=== PATIENT | female | born 1960 | race Caucasian/White ===

== ENCOUNTER 2020-10-16 14:02 | Outpatient (REF) | payer MEDICAID, SELFPAY ==
--- NOTE | ~2020-10-16 | XR_ITS ---
EXAMINATION: XR SINUSES CLINICAL INFORMATION: Acute frontal sinusitis for 4 weeks. COMPARISON: CT head dated 11/03/2006. TECHNIQUE: 5 views of the sinuses were obtained. FINDINGS: There appears to be asymmetric opacification of the right maxillary sinus, which could indicate underlying sinusitis. Otherwise, the visualized paranasal sinuses and mastoid air cells appear clear without air-fluid levels. No lytic or blastic osseous lesion. No abnormal soft tissue calcification. No displaced fracture. XR/XR sinus min 3V IMPRESSION: Possible opacification of the right maxillary sinus, which could indicate underlying sinusitis.
== END 2020-10-16 14:03 | disposition home or self-care (01) ==
LOC: HO.XRAY 14:02
PROVIDERS: PCP Internal Medicine; Visit Provider Nurse Practitioner Family
DX: J01.10 Acute frontal sinusitis, unspecified (principal)
CPT/HCPCS: 70220

== ENCOUNTER → 2021-01-01 09:22 | Outpatient (BNVA) | payer MEDICAID, SELFPAY | PROVIDERS: PCP Internal Medicine; Visit Provider Surgery | DX: D17.1 Benign lipomatous neoplasm of skin and subcutaneous tissue of trunk (principal); D22.9 Melanocytic nevi, unspecified | CPT/HCPCS: 99202 ==

== ENCOUNTER 2021-01-19 07:37 | Outpatient (REF) | payer MEDICAID, SELFPAY ==
[2021-01-19 07:49] VITALS: BP 141/94; PULSE 82; RESP 16; TEMP 36.6; O2SAT 98
[2021-01-19 07:50] VITALS: BMI 24.7
--- NOTE | 2021-01-19 10:02 | W.PM.OPN ---
Operative Note Operative Note Date of Service: 01/19/21 Narrative: Preoperative diagnosis: Lipoma, dermal nevus of back Postoperative diagnosis: Same Procedure: Excision with the dermal nevus, excision of lipoma right back Surgeon: Yunior Galvez MD Director Of Diagnostic Imaging: No physician Anesthesia: Local Indications for procedure: 60-year-old female patient presenting with a soft tissue mass of the right mid back overlying this lesion is a dermal nevus. Patient presents for excision of both lesions Operative findings: Dermal nevus with irregular margin directly below a palpable lipoma measuring approximately 5 cm in diameter Specimen: Dermal nevus, right back, lipoma, right back Estimated blood loss: 5 mL Complications: None Procedure details: 60-year-old female patient presenting with a soft tissue mass with an overlying dermal nevus in the right back. Patient was placed in a prone position and the site of surgery confirmed by the patient. After assuring informed consent the skin was prepped with Betadine and draped in a sterile fashion. Local anesthesia was infiltrated in elliptical fashion using lidocaine 1% with epinephrine. An elliptical incision was then made to include the skin lesion. The skin lesion was excised and sent to pathology separately. The underlying lipoma was then dissected free from the surrounding subcutaneous tissue using Metzenbaum scissors. Specimen was passed off the table and sent to pathology. After assuring adequate hemostasis the dermis was reapproximated using interrupted 3-0 Polysorb sutures. Skin was then closed using interrupted 4-0 nylon sutures. Sterile dressings including 2 x 2 gauze and Tegaderm were then applied. The patient tolerated the procedure well. She was discharged to home in stable condition.
== END 2021-01-19 07:38 | disposition home or self-care (01) ==
LOC: HO.MS 07:37
PROVIDERS: PCP Internal Medicine; Visit Provider Surgery
PROC: (CPT 11400; principal; 2021-01-19 08:00)
DX: D22.5 Melanocytic nevi of trunk (principal); D17.1 Benign lipomatous neoplasm of skin and subcutaneous tissue of trunk
CPT/HCPCS: 11400; 21931; 88304; 88305

== ENCOUNTER → 2021-01-28 10:57 | Outpatient (BNVA) | payer MEDICAID, SELFPAY | PROVIDERS: PCP Internal Medicine; Referring Provider Internal Medicine; Visit Provider Surgery | DX: L82.1 Other seborrheic keratosis (principal); D17.1 Benign lipomatous neoplasm of skin and subcutaneous tissue of trunk; E78.00 Pure hypercholesterolemia, unspecified; I10 Essential (primary) hypertension; F17.200 Nicotine dependence, unspecified, uncomplicated; Z48.02 Encounter for removal of sutures | CPT/HCPCS: 99212 ==

== ENCOUNTER → 2021-04-01 13:02 | Outpatient (BNVA) | payer MEDICAID, SELFPAY | PROVIDERS: PCP Internal Medicine; Visit Provider Obstetrics & Gynecology | DX: N81.10 Cystocele, unspecified (principal) | CPT/HCPCS: 99202 ==

== ENCOUNTER 2023-04-07 11:00 | Outpatient (REF) | payer MEDICAID, SELFPAY ==
[2023-04-07 12:17] LABS: Alanine Aminotransferase 15 U/L (0-31); Albumin Level 4.2 g/dL (3.5-5.0); Alkaline Phosphatase 74 U/L (39-117); Aspartate Amino Transferase 25 U/L (5-31); Bilirubin Direct 0.2 mg/dL (0.0-0.5); Bilirubin Total 0.5 mg/dL (0.0-1.0); Total Protein 6.6 g/dL (6.5-8.0)
[2023-04-07 12:29] LABS: HIV AB/AG Nonreactive (Nonreactive); HIV Num 1 0.07 S/CO (0.00-0.99); ~HepC Num1 13.46 S/CO (0.00-0.79); ~Hepatitis C Antibody Reactive (Nonreactive)
[2023-04-13 19:55] LABS: HCV Log PCR <1.18 NOT DETECTED Log IU/mL (NOT DETECTED); HepC Viral Load <15 NOT DETECTED IU/mL (NOT DETECTED)
== END 2023-04-07 11:01 | disposition home or self-care (01) ==
LOC: HO.HHCL 11:00
PROVIDERS: Visit Provider Emergency Medicine
DX: F11.20 Opioid dependence, uncomplicated (principal)
CPT/HCPCS: 36415; 80076; 86803; 87389; 87522

== ENCOUNTER 2023-06-23 16:08 | Outpatient (REF) | payer MEDICAID, SELFPAY ==
[2023-06-23 17:27] LABS: MANUAL DIFF FLAG NO
[2023-06-23 17:31] LABS: Basophils Percent Auto 0.3 % (0-2); Hematocrit 37.4 % (37.0-47.0); Hemoglobin 12.4 g/dl (12.0-16.0); Lymphocytes Absolute Auto 1.7 X10*3/uL (1.2-4.9); Lymphocytes Percent Auto 42.5 % (20-40); Mean Corpuscular HGB Conc 33.2 g/dl (31.0-35.0); Mean Corpuscular Hemoglobin 31.6 pg (27.0-33.0); Mean Corpuscular Volume 95.4 fL (80.0-98.0); Mean Platelet Volume 10.2 fL (9.4-12.3); Monocytes Absolute Auto 0.3 X10*3/uL (0.1-1.2); Monocytes Percent Auto 7.2 % (2-11); Neutrophils Absolute Auto 1.9 x10*3/uL (2.0-8.3); Platelet Count 184 X10*3/uL (160-400); Red Blood Count 3.92 X10*6/uL (4.20-5.50); Red Cell Distribution Width 12.7 % (11.0-16.0); White Blood Count 3.9 X10*3/uL (4.8-10.8)
[2023-06-23 17:48] LABS: Alanine Aminotransferase 22 U/L (0-31); Albumin Level 4.4 g/dL (3.5-5.0); Alkaline Phosphatase 85 U/L (39-117); Anion Gap 11 (12-20); Aspartate Amino Transferase 28 U/L (5-31); Bilirubin Total 0.3 mg/dL (0.0-1.0); Blood Urea Nitrogen 21 mg/dL (9-16); Calcium 9.5 mg/dL (8.4-10.2); Carbon Dioxide 28 mmol/L (22-29); Chloride 104 mmol/L (96-108); Cholesterol 172 mg/dL (<200); Estimated Glomerular Filt Rate > 60; Glucose Random 87 mg/dL (60-115); HDL Cholesterol 77 mg/dL (>40); LDL Cholesterol Calculated 84 mg/dL (<100); Potassium 4.3 mmol/L (3.3-5.1); Sodium 139 mmol/L (135-145); Triglycerides 57 mg/dL (<150)
[2023-06-23 18:04] LABS: TSH reflex Free T4 1.23 uIU/mL (0.32-4.0)
== END 2023-06-23 16:09 | disposition home or self-care (01) ==
LOC: HO.HHCL 16:08
PROVIDERS: Visit Provider Nurse Practitioner Family
DX: R00.2 Palpitations (principal)
CPT/HCPCS: 36415; 80053; 80061; 84443; 85025

== ENCOUNTER 2024-04-19 09:55 | Outpatient (REF) | payer MEDICAID, SELFPAY ==
[2024-04-19 12:24] LABS: Alanine Aminotransferase 25 U/L (0-31); Alkaline Phosphatase 76 U/L (39-117); Amylase 76 U/L (28-100); Anion Gap 6 (12-20); Aspartate Amino Transferase 34 U/L (5-31); Bilirubin Direct 0.1 mg/dL (0.0-0.5); Bilirubin Total 0.3 mg/dL (0.0-1.0); Blood Urea Nitrogen 14 mg/dL (9-16); Calcium 8.9 mg/dL (8.4-10.2); Carbon Dioxide 29 mmol/L (22-29); Chloride 110 mmol/L (96-108); Cholesterol 146 mg/dL (<200); Estimated Glomerular Filt Rate > 60; Glucose Random 95 mg/dL (60-115); HDL Cholesterol 62 mg/dL (>40); LDL Cholesterol Calculated 61 mg/dL (<100); Lipase 17 U/L (8-78); Potassium 4.2 mmol/L (3.3-5.1); Sodium 141 mmol/L (135-145); Total Protein 6.5 g/dL (6.5-8.0); Triglycerides 115 mg/dL (<150)
[2024-04-19 12:35] LABS: HIV AB/AG Nonreactive (Nonreactive); HIV Num 1 0.04 S/CO (0.00-0.99); ~HepC Num1 12.49 S/CO (0.00-0.79); ~Hepatitis C Antibody Reactive (Nonreactive)
[2024-04-23 14:17] LABS: HCV Log PCR <1.18 NOT DETECTED Log IU/mL (NOT DETECTED); HepC Viral Load <15 NOT DETECTED IU/mL (NOT DETECTED)
== END 2024-04-19 09:56 | disposition home or self-care (01) ==
LOC: HO.HHCL 09:55
PROVIDERS: Emergency Medicine; Internal Medicine; Visit Provider Nurse Practitioner Family
DX: R10.84 Generalized abdominal pain (principal); F11.20 Opioid dependence, uncomplicated; E78.5 Hyperlipidemia, unspecified
CPT/HCPCS: 36415; 80053; 80061; 82150; 82248; 83690; 86803; 87389; 87522

== ENCOUNTER 2024-06-04 14:47 | Outpatient (REF) | payer MEDICAID, SELFPAY ==
[2024-06-04 16:06] LABS: MANUAL DIFF FLAG NO
[2024-06-04 16:17] LABS: Basophils Percent Auto 0.3 % (0-2); Eosinophils Percent Auto 1.3 % (0-4); Hematocrit 38.7 % (37.0-47.0); Hemoglobin 12.7 g/dl (12.0-16.0); Lymphocytes Absolute Auto 1.4 X10*3/uL (1.2-4.9); Lymphocytes Percent Auto 44.6 % (20-40); Mean Corpuscular HGB Conc 32.8 g/dl (31.0-35.0); Mean Corpuscular Hemoglobin 30.8 pg (27.0-33.0); Mean Corpuscular Volume 93.9 fL (80.0-98.0); Mean Platelet Volume 10.5 fL (9.4-12.3); Monocytes Absolute Auto 0.3 X10*3/uL (0.1-1.2); Monocytes Percent Auto 10.1 % (2-11); Neutrophils Absolute Auto 1.4 x10*3/uL (2.0-8.3); Neutrophils Percent Auto 43.7 % (45-73); Platelet Count 172 X10*3/uL (160-400); Red Blood Count 4.12 X10*6/uL (4.20-5.50); Red Cell Distribution Width 12.7 % (11.0-16.0); White Blood Count 3.2 X10*3/uL (4.8-10.8)
--- OUTSIDE RECORDS SUMMARY | 2024-06-04 18:32 | XMS_ITS | Encounter Summary ---
Author Organization [employer] Address [address] [place] [address] [address] [place] [address] Care Team Providers Care Laborer High Density Press Name Role Phone Fernanda Goldie SENIOR APPLICATIONS ENGINEER Primary Care Provider [phone] Flavio Jackson RELAY TELEGRAPHER Unavailable Unavailable Marina Abraham SENIOR APPLICATIONS ENGINEER Primary Care Provider [phone] Reason for Visit * Reason Comments Med Refill Encounter Details Date Type Department Care Team (Late st Contact Info) Description 02/16/2023 Refill [facility] [address] [place] [id number] Clifford, Renata, [facility] [address] [place] [address] Hyperlipidemia, unspecified hyperlipidemia type Social History Tobacco Use Types Packs/Day Years Used Date Smoking Tobacco: Never Assessed Depression Answer Date Recorded Patient Health Questionnaire-9 Score 2 02/02/2023 Patient Health Questionnaire-9 Score 2 02/02/2023 Last PHQ-9: Questionnaire Data Not on file 1 Depression Answer Date Recorded Patient Health Questionnaire-2 Score 0 02/02/2023 Comments Unknown Sex and Gender Information Value Date Recorded Sex Assigned at Female 02/07/2022 10:14 AM EDT Legal Sex Female 10:14 AM EDT Gender Identity Female 02/07/2022 10:14 AM EDT Sexual Orientation Straight 02/07/2022 10 :14 AM EDT documented as of this encounter Plan of Treatment Upcoming Encounters Date Type Department Care Team (Late st Contact Info) Description 06/28/2024 10:30 AM EDT Office Visit [facility] [address] [place] [id number] Fernando Nieto MD [address] [place] [address] documented as of this encounter Visit Diagnoses Diagnosis Hyperlipidemia, unspecified hyperlipidemia type documented in this encounter Additional Health Concerns Assessment Noted Time PHQ-9 Depression Total Score: 2 02/03/20 23 1:49 PM EDT documented as of this encounter Care Teams Laborer High Density Press Relationship Specialty Start Date End Date Goldie Michael NP [address] [place] [address] PCP - General Family Medicine 02/15/23 05/10/23 Marina Abraham NP [address] [place] [address] PCP - General Family Medicine 05/11/23 Flavio Jackson FNP [address] [place] [id number] Nurse Practitioner Family Medicine 03/14/23 documented as of this encounter
--- OUTSIDE RECORDS SUMMARY | 2024-06-04 18:33 | XMS_ITS | Encounter Summary ---
Author Organization [employer] Address [address] [place] [address] [address] [place] [address] Care Team Providers Care Clinic Business Manager Name Role Phone Flavio Jackson LALA Unavailable Unavailable Marina Abraham NP Primary Care Provider [phone] Reason for Visit * Reason Comments Med Refill Encounter Details Date Type Department Care Team ([facility] st Contact Info) Description 05/11/2023 Refill [facility] [address] [place], [place] [phone] Name, MD Emiliano [address] [place] [address] Hyperlipidemia, unspecified hyperlipidemia type Social History Tobacco Use Types Packs/Day Years Used Date Smoking Tobacco: Never Assessed Depression Answer Date Recorded Patient Health Questionnaire-9 Score 4 04/06/2023 Patient Health Questionnaire-9 Score 4 04/06/2023 Last PHQ-9: Questionnaire Data Not on file 1 06/07/2022 Depression Answer Date Recorded Patient Health Questionnaire-2 Score 0 04/06/2023 Comments Unknown Sex and Gender Information Value Date Recorded Sex Assigned at Female 02/07/2022 10:14 AM EDT Legal Sex Female 10:14 AM EDT Gender Identity Female 02/07/2022 10:14 AM EDT Sexual Orientation Straight 02/07/2022 10 :14 AM EDT documented as of this encounter Miscellaneous Notes * Telephone Encounter - Goldie Michael NP - 05/11/2023 2:28 PM EST Approving, but needs appt for additional refills. documented in this encounter Plan of Treatment Upcoming Encounters Date Type Department Care Team (Late st Contact Info) Description 06/28/2024 10:30 AM EDT Office Visit [facility] [address] [place] [address] Fernando Nieto MD [address] [place] [address] documented as of this encounter Visit Diagnoses Diagnosis Hyperlipidemia, unspecified hyperlipidemia type documented in this encounter Additional Health Concerns Assessment Noted Time PHQ-9 Depression Total Score: 4 04/06/20 10:05 AM EST documented as of this encounter Care Teams Clinic Business Manager Relationship Specialty Start Date End Date Marina Abraham NP [address] [place] [address] PCP - General Family Medicine 05/11/23 Flavio Jackson FNP Nurse Practitioner Family Medicine 03/14/23 documented as of this encounter
--- OUTSIDE RECORDS SUMMARY | 2024-06-04 18:33 | XMS_ITS | Encounter Summary ---
Author Organization [employer] Address [address] [place] [address] [address] [place] [address] Care Team Providers Care Billet Recorder Name Role Phone Flavio Jackson LALA Unavailable Unavailable Marina Abraham NP Primary Care Provider [phone] Reason for Visit * Reason Onset Date Comments Chart Prep 05/23/2024 Encounter Details Date Type Department Care Team ([facility] st Contact Info) Description 05/23/2024 Telephone [facility] [address] [place], [place] [phone] Crystal Zamudio MA Chart Prep Social History Tobacco Use Types Packs/Day Years Used Date Smoking Tobacco: Every Day Cigarettes Alcohol Use Standard Drinks/Week Comments Yes 0 (1 standard drink = 0.6 oz pur e alcohol) rare drinking Depression Answer Date Recorded Patient Health Questionnaire-9 Score 0 04/19/2024 Patient Health Questionnaire-9 Score 0 04/19/2024 Last PHQ-9: Questionnaire Data Not on file 0 04/19/2024 Housing Stability Answer Date Recorded What is your housing situation today? I have feliciano skinner 06/23/[address] you li ve. Do you have problems with any of the following? None of the above 06/23/2023 Food Insecurity Answer Date Recorded Within the past 12 months, y ou worried that your food would run out before you got money to buy more: Never True 06/23/2023 Within the past 12 months,th e food you bought just didn't last and you didn't have enough money to get more: Never True Transportation Answer Date Recorded In the past 12 months, has l ack of transportation kept you from medical appts, meetings, work or from getting things needed for daily living? No 06/23/2023 Utilities Answer Date Recorded In the past 12 months, has t he electric, gas, oil or water company threatened to shut off services in your home? No 06/23/2023 Depression Answer Date Recorded Patient Health Questionnaire-2 Score 0 04/19/2024 Comments Unknown Sex and Gender Information Value Date Recorded Sex Assigned at Female 02/07/2022 10:14 AM EDT Legal Sex Female 10:14 AM EDT Gender Identity Female 02/07/2022 10:14 AM EDT Sexual Orientation Straight 02/07/2022 10 :14 AM EDT documented as of this encounter Miscellaneous Notes * Telephone Encounter - Crystal Zamudio MA - 05/23/2024 1:55 PM EST Chart Prep Labs: done Images: not done Vaccines due: Covid, Tdap, Hep B, PCV20, Flu, Shingles Referrals: Cardiology pending appointment Screenings: mammogram , Derm skin melanoma skin check, Cervical cancer Overdue care gaps: SDOH documented in this encounter Plan of Treatment Upcoming Encounters Date Type Department Care Team (Late st Contact Info) Description 06/28/2024 10:30 AM EDT Office Visit [facility] [address] [place] [address] Fernando Nieto MD [address] [place] [address] documented as of this encounter Visit Diagnoses Not on filedocumented in this encounter Additional Health Concerns Assessment Noted Time PHQ-9 Depression Total Score: 0 04/19/19 25 11:45 AM EST documented as of this encounter Care Teams Billet Recorder Relationship Specialty Start Date End Date Marina Abraham NP [address] [place] [address] PCP - General Family Medicine 05/11/23 Flavio Jackson FNP Nurse Practitioner Family Medicine 03/14/23 documented as of this encounter
--- OUTSIDE RECORDS SUMMARY | 2024-06-04 18:33 | XMS_ITS | Encounter Summary ---
Author Organization [employer] Address [address] [place] [address] [address] [place] [address] Care Team Providers Care Driller'S Assistant Name Role Phone Flavio Jackson LALA Unavailable Unavailable Marina Abraham NP Primary Care Provider [phone] Reason for Visit * Reason Onset Date Comments Med Refill 05/09/2024 Encounter Details Date Type Department Care Team (Late st Contact Info) Description 05/09/2024 Refill [facility] [address] [place], [place] [phone] [place] RN Uncomplicated opioid dependence (CMS/HCC) Social History Tobacco Use Types Packs/Day Years [...] Description 06/28/2024 10:30 AM EDT Office Visit [facility] [address] [place] [address] Fernando Nieto MD [address] [place] [address] documented as of this encounter Visit Diagnoses Diagnosis Uncomplicated opioid dependence (CMS/HCC) documented in this encounter Additional Health Concerns Assessment Noted Time PHQ-9 Depression Total Score: 0 04/19/19 25 11:45 AM EST documented as of this encounter Care Teams Driller'S Assistant Relationship Specialty Start Date End Date Marina Abraham NP [address] [place] [address] PCP - General Family Medicine 05/11/23 Flavio Jackson FNP Nurse Practitioner Family Medicine 03/14/23 documented as of this encounter
--- OUTSIDE RECORDS SUMMARY | 2024-06-04 18:33 | XMS_ITS | Encounter Summary ---
Author Organization [employer] Address [address] [place] [address] [address] [place] [address] Care Team Providers Care Supervisor Photocomposition Name Role Phone Flavio Jackson VESSEL CREW MEMBER Unavailable Unavailable Marina Abraham NP Primary Care Provider [phone] Reason for Visit * Reason Onset Date Comments No Show 06/03/2024 Encounter Details Date Type Department Care Team ([facility] st Contact Info) Description 06/03/2024 Telephone [facility] [address] [place], [place] [phone] Marina Abraham, SUDHEER [address] [place], [place] [phone] No Show Social History Tobacco Use Types Packs/Day Years [...] encounter Miscellaneous Notes * Telephone Encounter - Ana Jose - 06/03/2024 11:00 AM EST Patient no show to FOLLOW UP appointment on 06/03/24. documented in this encounter Plan of Treatment Upcoming Encounters Date Type Department Care Team (Late st Contact Info) Description 06/28/2024 10:30 AM EDT Office Visit [facility] [address] [place] [address] Fernando Nieto MD [address] [place] [address] documented as of this encounter Visit Diagnoses Not on filedocumented in this encounter Additional Health Concerns Assessment Noted Time PHQ-9 Depression Total Score: 0 04/19/19 11:45 AM EST documented as of this encounter Care Teams Supervisor Photocomposition Relationship Specialty Start Date End Date Marina Abraham NP [address] [place] [address] PCP - General Family Medicine 05/11/23 Flavio Jackson FNP Nurse Practitioner Family Medicine 03/14/23 documented as of this encounter
--- OUTSIDE RECORDS SUMMARY | 2024-06-04 18:33 | XMS_ITS | Encounter Summary ---
Author Organization [employer] Address [address] [facility] [address] [place] [address] Care Team Providers Care Leather Sponger Name Role Phone CiarachuckFlavio SPECIALTY THERAPIST Unavailable Unavailable Marina Abraham NP Primary Care Provider [phone] Encounter Details Date Type Department Care Team (Latest Contact Info) Description 06/04/2024 Travel Social History Tobacco Use Types Packs/Day Years [...] Description 06/28/2024 10:30 AM EDT Office Visit [facility] [address] [place] [address] Fernando Nieto MD [address] [place] [address] documented as of this encounter Goals Goal Patient Goal Type Associated Problems Recent Progress Patient-Stated? Author Keep your medical appointments Lifestyle No Mitchell Mendiola RN documented as of this encounter Visit Diagnoses Not on filedocumented in this encounter Additional Health Concerns Assessment Noted Time PHQ-9 Depression Total Score: 0 04/19/19 25 11:45 AM EST documented as of this encounter Care Teams Leather Sponger Relationship Specialty Start Date End Date Marina Abraham NP [address] [place] [address] PCP - General Family Medicine 05/11/23 Flavio Jackson FNP Nurse Practitioner Family Medicine 03/14/23 documented as of this encounter
--- OUTSIDE RECORDS SUMMARY | 2024-06-04 18:33 | XMS_ITS | Encounter Summary ---
Author Organization [employer] Address [address] [place] [address] [address] [place] [address] Care Team Providers Care Trust Advisor Name Role Phone Flavio Jackson LALA Unavailable Unavailable Marina Abraham NP Primary Care Provider [phone] Reason for Visit * Reason Onset Date Comments Med Refill 05/28/2024 Encounter Details Date Type Department Care Team (Late st Contact Info) Description 05/28/2024 Refill [facility] [address] [place], [place] [phone] Kait Fatima, RN Uncomplicated opioid dependence (CMS/HCC) Social History [...] 06/28/2024 10:30 AM EDT Office Visit [facility] [address] [place] [address] Fernando Nieto MD [address] [place] [address] documented as of this encounter Visit Diagnoses Diagnosis Uncomplicated opioid dependence (CMS/HCC) documented in this encounter Additional Health Concerns Assessment Noted Time PHQ-9 Depression Total Score: 0 04/19/19 25 11:45 AM EST documented as of this encounter Care Teams Trust Advisor Relationship Specialty Start Date End Date Marina Abraham NP [address] [place] [address] PCP - General Family Medicine 05/11/23 Flavio Jackson FNP Nurse Practitioner Family Medicine 03/14/23 documented as of this encounter
--- OUTSIDE RECORDS SUMMARY | 2024-06-04 18:33 | XMS_ITS | Encounter Summary ---
Author Organization [employer] Address [address] [place] [address] [address] [place] [address] Care Team Providers Care Glove Maker Name Role Phone Flavio Jackson FENCE ERECTOR Unavailable Unavailable Marina Abraham NP Primary Care Provider [phone] Reason for Visit * Reason Comments OBAT Encounter Details Date Type Department Care Team (Latest Contact Info) Description 06/04/2024 1:45 PM EST Clinical Support [facility] [address] [place], [place] [phone] Mitchell Mendiola, RN [address] [place] [address] Uncomplicated opioid dependence (CMS/HCC) (Primary Dx) Social History Tobacco Use Types Packs/Day Years [...] AM EDT documented as of this encounter Progress Notes * Mitchell Mendiola RN - 06/04/2024 1:45 PM EST Shauna here today for Opioid Dependence RV. Patient on current Suboxone dose of 16/4 mg on a 4 week schedule. Induction date 12/28/18. LFTs completed 04/19/24. Patient not currently enrolled in behavioral health services. CARINA MCKEON reviewed by provider. Smoking status 02/2024: 1-2 cigs/day Last PCP appt 07/21/23. Missed PCP appt 06/03/24. Last visit 04/04/24 Utox bup, bzo, tca Shauna seen today for follow-up for opioid use disorder. Seen a day early due to transportation issues tomorrow. Due for annual labs, which are ordered. Reports using 1/2 a bzo 3 days ago due to acuteanxiety/panic. Reports she has tried prescribed anti-anxiety/anti-depressant meds in the past but they did not work for her. Offered a referral to new psych prescriber Toño Servin and pt stated she would think about it. Declined to speak with a therapist today. TODAY 06/04/24 +bup, bzo, tca Shauna is here after missing appt a few days ago. Also missed PCP appt yesterday. She is having trouble keeping appts, plans to go and reschedule PCP appt now. No concerns with Suboxone. Still struggling with intermittent anxiety, but declines services. Plan: Suboxone dosing schedule of 16/4 mg daily and management of side effects reviewed. Recovery support, harm reduction (including Narcan), and behavioral health attendance reviewed. Appointment for 4 weeks given. Patient expressed understanding and agreement with continuing plan of care. This information has been disclosed to you from records protected by federal confidentiality rules (42 CFR Part 2). The federal rules prohibit you from making any further disclosure of information inthis record that identifies a patient as having or having had a substance use disorder either directly, by reference to publicly available information, or through verification of such identification by another person unless further disclosure is expressly permitted by the written consent of the individual whose information is being disclosed or as otherwise permitted by (see2.3.1). The federal rules restrict any use of the information to investigate or prosecute with regard to a crime any patient with a substance use disorder, except as provided at 2.12??(5) and 2.65. documented in this encounter Plan of Treatment Upcoming Encounters Date Type Department Care Team (Late st Contact Info) Description 06/28/2024 10:30 AM EDT Office Visit [facility] [address] [place], [place] [phone] Fernando Nieto MD [address] [place] [address] documented as of this encounter Goals Goal Patient Goal Type Associated Problems Recent Progress Patient-Stated? Author Keep your medical appointments Lifestyle No Mitchell Mendiola RN documented as of this encounter Procedures Procedure Name Priority Date/Time Associated Diagnosis Comments POCT AGAPITO-14 URINE DRUG SCREEN Routine 06/04/2024 1:50 PM EST Uncomplicated opioid dependence ([facility]) documented in this encounter Results * POCT AGAPITO-14 Urine Drug Screen (06/04/2024 1:50 PM EST) THC Negative Cocaine Screen, Urine Negative Opiate Screen, Urine Negative Methamphetamine Screen Urine Negative Amphetamine Screen, Urine Negative Benzodiazepines Screen, Urine Positive Barbiturate Screen, Urine Negative Methadone Screen, Urine Negative Buprenophine Screen, Urine Positive TCA, Urine Positive MDMA Urine Negative ng/mL Oxycodone Screen, Urine Negative Phencyclidine (PCP), Urine Negative Propoxyphene, Urine Negative Fentanyl, Urine Negative Urine Urine specimen obtained by clean catch procedure / Unknown 06/04/2024 1:50 PM EST Cesar Manning MD POINT OF CARE TEST ENTER/EDIT OR DERABLES Final Result documented in this encounter Visit Diagnoses Diagnosis Uncomplicated opioid dependence (CMS/HCC)- Primary documented in this encounter Additional Health Concerns Assessment Noted Time PHQ-9 Depression Total Score: 0 04/19/19 25 11:45 AM EST documented as of this encounter Care Teams Glove Maker Relationship Specialty Start Date End Date Marina Abraham NP [address] [place] [address] PCP - General Family Medicine 05/11/23 Flavio Jackson FNP Nurse Practitioner Family Medicine 03/14/23 documented as of this encounter
--- OUTSIDE RECORDS SUMMARY | 2024-06-04 18:33 | XMS_ITS | Clinical Summary ---
Author Organization [employer] Address [address] [place] [address] [address] [place] [address] Care Team Providers Care Inspector Watch Train Name Role Phone ManuelJaydenFlavio BREAD ICER Unavailable Unavailable Marina Abraham NP Primary Care Provider [phone] Allergies No known active allergies Medications * This document contains information received from the source organization and may not represent a complete record from that organization. ibuprofen 800 MG tablet Take 1 tablet by mouth every 8 (eight) hours. Active lidocaine (Lidoderm) 5 % patch Place 1 patch on the skin 1 (one) time each day. May wear up to 12 hours. Active Blood Pressure kit Use as directed Active dicyclomine (Bentyl) 20 MG tabletIndications :Generalized abdominal pain Take 1 tablet (20 mg) by mouth before breakfast, before lunch, before evening meal, and at bedtime. 30 tablet 024 2024 Active Multiple Vitamin (Multi-Vitamin) tablet Take 1 tablet by mouth Once per day. Active atorvastatin (Lipitor) 10 MG tabletIndications :Hyperlipidemia, unspecified hyperlipidemia type TAKE 1 TABLET BY MOUTH EVERY DAY 90 tablet 025 Active cyclobenzaprine (Flexeril) 10 MG tabletIndications :Muscle spasm Take 1 tablet (10 mg) by mouth if needed in the morning and at bedtime for muscle spasms for up to 10 days. 20 tablet 025 Active fluticasone (Flonase) 50 MCG/ACT nasal spray Administer 2 sprays into each nostril Once per day. Shake gently. Before first use, prime pump. After use, clean tip and replace cap. 11.1 mL 3 025 Active metoprolol tartrate (Lopressor) 25 MG tablet Take 0.5 tablets (12.5 mg) by mouth 2 times daily. 30 tablet 025 Active Buprenorphine HCl-Naloxone HCl (Suboxone) 8-2 MG SL filmIndications:U ncomplicated opioid dependence (CMS/HCC) Place 1 Film under the tongue every 12 (twelve) hours for 28 days. Allow to dissolve slowly in the mouth without chewing or swallowing. Do not start before May 31, 2024. 56 Film 025 2024 Active Buprenorphine HCl-Naloxone HCl (Suboxone) 8-2 MG SL filmIndications:U ncomplicated opioid dependence (CMS/HCC) Place 1 Film under the tongue every 12 (twelve) hours. Allow to dissolve slowly in the mouth without chewing or swallowing. 56 Film 024 2024 Discontinued(R eorder (will not trigger notification to Pharmacy)) Buprenorphine HCl-Naloxone HCl (Suboxone) 8-2 MG SL filmIndications:U ncomplicated opioid dependence (CMS/HCC) Place 1 Film under the tongue every 12 (twelve) hours for 22 days. Allow to dissolve slowly in the mouth without chewing or swallowing. 44 Film 025 2024 Discontinued(R eorder (will not trigger notification to Pharmacy)) Active Problems Problem Noted Date Diagnosed Date Generalized abdominal pain 09/28/2023 Assessment & Plan (09/28/2023 11:51 AM EDT): I advise patient to avoid NSAIDs, spicy and acid food, I advise to eat at the same time every day Patient will be contacted with result of tests Palpitations 07/21/2023 Assessment & Plan (07/24/2023 11:11 AM EDT): Requesting referral to cardiology, referred, Monitor, aware of s/s to report Reviewed possible option of betablocker for anxiety and occasional palpitations Recent cbc and tsh wnl Chronic midline thoracic back pain 07/21/2023 Assessment & Plan (07/24/2023 11:13 AM EDT): X-ray ordered, Onychomycosis 07/21/2023 Assessment & Plan (07/24/2023 11:11 AM EDT): Reviewed options for treatment, rx sent Tobacco dependence due to cigarettes, in remissi on 06/23/2023 Assessment & Plan (06/23/2023 7:47 PM EDT): Has not had a cigarette today, does not have 30 pack years, Chronic sinusitis 06/23/2023 Hyperlipidemia 06/23/2023 Assessment & Plan (06/23/2023 7:47 PM EDT): Stable, repeat labs, Given sig fh of CAD reviewed risk/benefit of daily aspirin Encounter for screening for malignant neoplasm o f colon 06/23/2023 Assessment & Plan (06/23/2023 7:50 PM EDT): Willing to complete ifobt Subacute maxillary sinusitis 06/23/2023 Assessment & Plan (06/23/2023 7:50 PM EDT): Pt with hx of chronic sinusitis requiring surgery, asymptomatic since until 2 weeks ago when chronic nasal congestion with pain and inability to clear sinus returned. - resume flonase - if no improvement may start abx as prescribed, continue until completed Muscle spasm 06/23/2023 Assessment & Plan (06/23/2023 7:50 PM EDT): Reviewed intermittent usage of prn msc relaxer Palpitation 06/23/2023 Assessment & Plan (06/23/2023 7:52 PM EDT): EKG completed in house today, labs as ordered below, rtc in 1 month aware of s/s to report JOSUE (generalized anxiety disorder) 10/24/2022 Assessment & Plan (04/06/2023 10:30 AM EST): With bipolar features. Hx childhood trauma. Differential includes PTSD. Poor sleep, nightmares, panic attacks with dissociation. Hx mild mood-congruent hallucinations. Hx opiate addiction currently on Suboxone. Tobacco abuse disorder. She continues doing very well, and will continue Seroquel 25 mg 1/2 or 1 full tab at bedtime. May also continue Hydroxyzine 10mg 1-2 tabs prn at first sign of panic attack. F/U with [facility] clinician [place] and plans to seek outpatient therapist On 02/02/2023 provider informed pt that I would be retiring within the next year or so. At next appt in 2 months will review plans for continuity of care. She agrees with the plan. Assessment & Plan (02/02/2023 2:52 PM EDT): With bipolar features. Hx childhood trauma. Differential includes PTSD. Poor sleep, nightmares, panic attacks with dissociation. Hx mild mood-congruent hallucinations. Hx opiate addiction currently on Suboxone. Tobacco abuse disorder. She continues doing very well, and will continue Seroquel 25 mg 1/2 or 1 full tab at bedtime. May also continue Hydroxyzine 10mg 1-2 tabs prn at first sign of panic attack. F/U with [facility] clinician Russell. Today 02/02/2023 provider informed pt that I would be retiring within the next year or so, but we would make every effort to ensure smooth transition of care. F/U with me in 2 months. She agrees with the plan. Assessment & Plan (11/22/2022 11:32 AM EDT): With bipolar features. Hx childhood trauma. Differential includes PTSD. Poor sleep, nightmares, panic attacks with dissociation. Hx mild mood-congruent hallucinations. Hx opiate addiction currently on Suboxone. Tobacco abuse disorder. She has had excellent early response to Seroquel 25 mg 1/2 tab at bedtime with better sleep, improved appetite, control of anxiety and mood swings. She can continue like this for now or increase to 1 full tab at bedtime. May also continueHydroxyzine 10mg 1-2 tabs prn at first sign of panic attack. F/U with [facility] clinician Russell. F/U with me in 6 weeks. She agrees with the plan. Assessment & Plan (10/24/2022 11:23 AM EDT): With bipolar features. Hx childhood trauma. Differential includes PTSD. Poor sleep, nightmares, panic attacks with dissociation. Hx mild mood-congruent hallucinations. Hx opiate addiction currently on Suboxone. Tobacco abuse disorder. She will start Seroquel 25 mg 1/2 tab then 1 tab at bedtime. Also Hydroxyzine 10mg 1-2 tabs prn at first sign of panic attack. F/U with [facility] clinician Russell. F/U with me in 3-4 weeks. She agrees with the plan. 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/07/2012 Depressive disorder 08/16/2011 Malignant basal cell neoplasm of skin 06/23/2011 Assessment & Plan (06/23/2023 7:48 PM EDT): In care , recent evaluation by derm Resolved Problems Problem Noted Date Diagnosed Date Resolved Date Chronic use of opiate drug f or therapeutic purpose 06/23/2023 06/23/2023 Encounters Date Type Department Care Team Description 06/04/2024 2:20 PM EST Office Visit [facility] [address] [place] [phone] Name, MD Emiliano Abnormal findings in stool (Primary Dx) 06/04/2024 1:45 PM EST Clinical Support [address] [address] Mitchell Mendiola RN Uncomplicated opioid dependence ([facility]/HCC) (Primary Dx) 06/04/2024 Travel 06/03/[address] [address] Marina Abraham NP No Show 05/28/[address] [address] Kait Fatima, CHRISTIAN Uncomplicated opioid dependence (CMS/HCC) 05/23/[address] [address] Crystal Zamudio MA Chart Prep 05/21/[address] [address] Kait Fatima, CHRISTIAN 05/09/[address] [address] Lexus iHll RN Uncomplicated opioid dependence ([facility]/HCC) 04/19/2024 9:00 AM EST Office Visit [address] [address] Chelo Dyer FNP Palpitation (Primary Dx); Hyperlipidemia, unspecified hyperlipidemia type; Muscle spasm; JOSUE (generalized anxiety disorder) 04/19/2024 Orders Only [facility] [address] [place] [phone] Fernando Nieto MD 04/19/[address] [address] Shanua Baker RN 04/08/2024 Orders Only [facility] [address] [place], [place] [phone] Jam Pereira MD 04/08/[address] [address] Marina Abraham NP ER Follow-up 04/04/2024 11:00 AM EST Clinical Support [address] [address] Kali Silver RN Uncomplicated opioid dependence ([facility]/HCC) (Primary Dx) 04/04/2024 Travel 04/01/2024 Orders Only [facility] [address] [place] [phone] Lexus Hill RN Uncomplicated opioid dependence ([facility]/HCC) 03/27/2024 Refill [facility] [address] [place] [phone] Lexus Hill RN Uncomplicated opioid dependence ([facility]/HCC) 03/05/2024 Refill [facility] [address] [place] [phone] Marina Abraham NP Muscle spasm 03/05/[address] [address] Marina Abraham NP Medication Question from Last 3 Months Immunizations Name Administration Dates Next Due Hep A, Adult 06/13/2003 Hep B, adult 04/14/2009,01/23/2007,12/15/2006 Influenza injectable quadriv alent preservative free 02/01/2021 Influenza, IIV3, injectable 12/28/2006, 3 Moderna Covid-19 Vaccine 12+ 03/26/2021,09/05/19 21,08/07/2020 Pneumococcal Polysaccharide PPSV23 12/15/2006 TD (adult), 2 Lf tetanus tox oid, preservative free, adsorbed 04/14/2009 Social History Tobacco Use Types Packs/Day Years Used Date Smoking Tobacco: Every Day Cigarettes Tobacco Cessation:Ready to Q uit: Not Asked; Counseling Given: Not Answered Alcohol Use Standard Drinks/Week Comments Yes 0 [...] Orientation Straight 02/07/2022 10 :14 AM EDT Last Filed Vital Signs Vital Sign Reading Time Taken Comments Blood Pressure 108/80 06/04/2024 2:29 PM EST Pulse 80 06/04/2024 2:29 PM EST Temperature 36.7 ??C (98 ??F) 06/04/2024 2:29 PM EST Respiratory Rate 16 06/04/2024 2:29 PM EST Oxygen Saturation 98% 06/04/2024 2:29 PM EST Inhaled Oxygen Concentration - - Weight 57.2 kg (126 lb) 06/04/2024 2:29 PM EST Height 157.5 cm (5' 2 ) 04/19/2024 8:56 AM EST Body Mass Index 23.05 04/19/2024 8:56 AM EST Plan of Treatment Upcoming Encounters Date Type Department Care Team (Late st Contact Info) Description 06/28/2024 10:30 AM EDT Office Visit [facility] [address] [place], [place] [phone] Fernando Nieto MD [address] [place], [place] [phone] Health Maintenance Due Date Last Done Comments CT Colonography 1960 Colonoscopy 1960 Colorectal Cancer Screening 1960 FIT DNA/Cologuard 1960 FIT 1960 FOBT 1960 Sigmoidoscopy 1960 Derm Melanoma Skin Check 02/02/1961 Pap Smear 1981 Cervical Cancer Screening 1990 HPV/Cotest 1990 Mammogram 2000 Hepatitis A Vaccines (2 of 2 - Risk 2-dose series) 12/14/2003 06/13/2003 Pneumococcal Vaccine: 50+ Years (2 of 2 - PCV) 12/16/2007 12/15/2006 DTaP/Tdap/Td Vaccines (1 - Tdap) 04/15/2009 04/14/2009 Zoster Vaccines (1 of 2) 2010 COVID-19 Vaccine (4 - season) 2023 03/26/2021, 09/04/2020, 08/07/2020 Influenza Vaccine (#1) 2023 , 12/28/2006, 02/05/2003 SDOH Screening 06/22/2024 06/23/2023 Alcohol/Substance Use Screening 04/19/2025 04/19/2024 Depression Screening 04/19/2025 04/19/2024, 04/19/19 Tobacco Screening 04/19/2025 04/19/2024 Lipid Panel 04/19/2029 04/19/2024, 06/08, 08/18/2021, Additional history exists RSV Patients and Patients Aged 60 years or older (1 - 1-dose 75+ series) 08/04/2035 Hepatitis B Vaccines Completed 04/14/2009, 01/23/2007, 12/15/2006 HIV Screening Completed 04/19/2024, 04/07/2023 Hepatitis C Screening Completed 04/19/2024 , 04/19/2024, 04/07/2023, Additional history exists HIB Vaccines Aged Out No longer eligi ble based on patient's age to complete this topic HPV Vaccines Aged Out No longer eligi ble based on patient's age to complete this topic IPV Vaccines Aged Out No longer eligi ble based on patient's age to complete this topic Meningococcal Vaccine Aged Out No kenya brenna eligible based on patient's age to complete this topic RSV under 20 months Aged Out No longe r eligible based on patient's age to complete this topic Rotavirus Vaccines Aged Out No longer eligible based on patient's age to complete this topic Goals Goal Patient Goal Type Associated Problems Recent Progress Patient-Stated? Author Keep your medical appointments Lifestyle No Mitchell Mendiola, contract paralegal Procedure Name Priority Date/Time Associated Diagnosis Comments CBC WITH AUTO DIFFERENTIAL Routine 06/04/2024 2:29 PM EST Abnormal findings in stool POCT AGAPITO-14 URINE DRUG SCREEN Routine 06/04/2024 1:50 PM EST Uncomplicated opioid dependence (CMS/HCC) HEPATITIS C VIRAL RNA, QUANTITATIVE, REAL-TIME PCR Routine 04/19/2024 9:58 AM EST HIV 1/2 ANTIGEN/ANTIBODY, FOURTH GENERATION W/RFL Routine 04/19/2024 9:58 AM EST HEPATITIS C AB W/REFL TO HCV RNA, QN, PCR Routine 04/19/2024 9:58 AM EST HEPATIC FUNCTION PANEL Routine 04/19/2024 9:58 AM EST LIPID PANEL, STANDARD Routine 04/19/2024 9:58 AM EST Hyperlipidemia, unspecified hyperlipidemia type AMYLASE Routine 04/19/2024 9:58 AM EST Generalized abdominal pain LIPASE Routine 04/19/2024 9:58 AM EST Generalized abdominal pain COMPREHENSIVE METABOLIC PANEL Routine 04/19/2024 9:58 AM EST Generalized abdominal pain TROPONIN T 5TH GENERATION Routine 04/08/2024 3:59 PM EST BASIC METABOLIC PANEL Routine 04/08/2024 3:59 PM EST POCT AGAPITO-14 URINE DRUG SCREEN Routine 04/04/2024 11:21 AM EST Uncomplicated opioid dependence (CMS/HCC) from Last 3 Months Results * (ABNORMAL) CBC auto differential (06/04/2024 2:29 PM EST) White Blood Count 3.2(L) 4.8 - 10.8 X10*3/uL [facility] Red Blood Count 4.12(L) 4.20 - 5.50 X10*6/uL [facility] Hemoglobin 12.7 12.0 - 16.0 g/dl [facility] Hematocrit 38.7 37.0 - 47.0 % [facility] Mean Corpuscular Volume 93.9 80.0 - 98.0 fL [facility] Mean Corpuscular Hemoglobin 30.8 27.0 - 33.0 pg [facility] Mean Corpuscular HGB Conc 32.8 31.0 - 35.0 g/dl [facility] Red Cell Distribution Width 12.7 11.0 - 16.0 % [facility] Platelet Count 172 160 - 400 X10*3/uL [facility] Mean Platelet Volume 10.5 9.4 - 12.3 fL [facility] Neutrophils Percent Auto 43.7(L) 45 - 73 % [facility] Imm Gran Pct Auto 0.0 0.0 - 0.4 % [facility] Lymphocytes Percent Auto 44.6(H) 20 - 40 % [facility] Monocytes Percent Auto 10.1 2 - 11 % [facility] Eosinophils Percent Auto 1.3 0 - 4 % [facility] Basophils Percent Auto 0.3 0 - 2 % [facility] NRBC Pct Auto 0.0 0.0 - 0.2 /100WBC [facility] Neutrophils Absolute Auto 1.4(L) 2.0 - 8.3 x10*3/uL [facility] Imm Gran Abs Auto 0.00 0.00 - 0.03 X10*3/uL [facility] Lymphocytes Absolute Auto 1.4 1.2 - 4.9 X10*3/uL [facility] Monocytes Absolute Auto 0.3 0.1 - 1.2 X10*3/uL [facility] Eosinophils Absolute Auto 0.0 0.0 - 0.4 X10*3/uL [facility] Basophils Absolute Auto 0.0 0.0 - 0.2 X10*3/uL [facility] NRBC Abs Auto 0.000 0.0 - 0.012 X10*3/uL [facility] Blood Venous blood specimen / Unknown 06/04/2024 2:29 PM EST 06/04/2024 4:04 PM EST us Emiliano Name LAB BLOOD ORDERABLES Final Resul t [facility] [address] [place] [phone] * POCT AGAPITO-14 Urine Drug Screen (06/04/2024 1:50 PM EST) Only the most recent of2 resultswithin the time period is included. THC Negative Cocaine Screen, Urine Negative Opiate [...] procedure / Unknown 06/04/2024 1:50 PM EST Result [facility] Cesar Manning MD POINT OF CARE TEST ENTER/EDIT OR DERABLES Final Result * Hepatitis C Viral RNA, Quantitative, Real-Time PCR (04/19/2024 9:58 AM EST) Pathologist [facility] Hepatitis C Viral Load <15 NOT DETECTED NOT DETECTED IU/mL [facility] HCV Log PCR <1.18 NOT DETECTED NOT DETECTED Log IU/mL [facility] Comment:For additional infor javi, please refer tohttp://education.enymotion/faq/NBA17q4(This link is being provided for informational/educational purposes only.)THIS TEST WAS PERFORMED AT:[facility] [place] [phone] PRECIADO MD 04/19/2024 9:58 AM EST 04/22/2024 11:20 AM EST Result [facility] Fernando Nieto MD LAB BLOOD ORDERABLES Final Res ult [facility] [address] [place] [phone] * (ABNORMAL) Hepatitis C Antibody with Reflex to HCV, RNA, Quantitative, Real- Time PCR (04/19/2024 9:58 AM EST) Pathologist [facility] Hepatitis C Antibody Reactive( A) Nonreactive [facility] Comment:Presumptive evidence of antibodies to HCV. 04/19/2024 9:58 AM EST 04/19/2024 11:34 AM EST Result [facility] Fernando Nieto MD LAB BLOOD ORDERABLES Final Res ult Performing Organization Address [facility]/ZIP Co de Phone Number [facility] [address] [place] [phone] * HIV-1/2 Antigen and Antibodies, Fourth Generation, with Reflexes (04/19/2024 9:58 AM EST) HIV AB/AG Nonreactive Nonreactive [facility] Comment:HIV-1 p24 Ag and/or HIV-1/HIV-2 Ab not detected.A test result that is nonreactive does not exclude thepossibility of exposure to or infection with HIV-1 and/orHIV-2. Nonreactive results in this assay for individualswith prior exposure to HIV-1 and/or HIV-2 may be due toantigen and antibody levels that are below the limit ofdetection of this assay.The [employer] HIV Ag/Ab Combo assay result andsupplemental assay results should be interpreted inconjunction with the patient's clinical presentation,history and other laboratory results. If the results areinconsistent with clinical evidence, additional testing issuggested to confirm the result. 04/19/2024 9:58 AM EST 04/19/2024 11:34 AM EST us Fernando Nieto MD LAB BLOOD ORDERABLES Final Res ult Performing Organization Address [facility] Co de Phone Number [facility] [address] [place] [phone] * Lipase (04/19/2024 9:58 AM EST) Lipase 17 8 - 78 U/L [facility] Blood Venous blood specimen / Unknown 04/19/2024 9:58 AM EST 04/19/2024 11:34 AM EST us Nataliya Bates MD LAB BLOOD ORDERABLES Final Result Performing Organization Address City/[facility]/ZIP Co de Phone Number [facility] [address] [place] [phone] * Amylase (04/19/2024 9:58 AM EST) Amylase 76 28 - 100 U/L [facility] Blood Venous blood specimen / Unknown 04/19/2024 9:58 AM EST 04/19/2024 11:34 AM EST us Nataliya Bates MD LAB BLOOD ORDERABLES Final Result [facility] [address] [place] [phone] * Hepatic Function Panel (04/19/2024 9:58 AM EST) Bilirubin, Direct 0.1 0.0 - 0.5 mg/dL [facility] 04/19/2024 9:58 AM EST 04/19/2024 11:34 AM EST us Fernando Nieto MD LAB BLOOD ORDERABLES Final Res ult Performing Organization Address City/[facility]/ZIP Co de Phone Number [facility] [address] [place] [phone] * Lipid Panel, Standard (04/19/2024 9:58 AM EST) Triglycerides 115 <150 mg/dL [facility] Comment:Desirable Triglyceri de: less than 150 mg/dLBorderline High Triglyceride 150-199 mg/dLHigh Triglyceride: 200-499 mg/dLVery High Triglyceride: greater than or equal to 5OO mg/dL Cholesterol 146 <200 mg/dL [facility] Comment:Desirable Cholestero l: less than 200 mg/dLBorderline High Cholesterol: 200-239 mg/dLHigh Cholesterol: greater than 239 mg/dL LDL Cholesterol Calculated 61 <100 mg/dL [facility] Comment:Desirable LDL: less than 100 mg/dLNear Optimal/Above Optimal LDL: 110- 129 mg/dLBorderline High LDL: 130-159 mg/dLHigh LDL: 160-189 mg/dLVery High LDL: greater than or equal to 190 mg/dL HDL Cholesterol 62 >40 mg/dL [facility] Comment:Desirable HDL: grea ter than 40 mg/dL Note: This HDL assay may give artificially low results in patients with liver disease. Blood Venous blood specimen / Unknown 04/19/2024 9:58 AM EST 04/19/2024 11:34 AM EST us Chelo [place] BREAD ICER LAB BLOOD ORDERABLES Final Res ult [facility] [address] [place] [phone] * (ABNORMAL) Comprehensive Metabolic Panel (04/19/2024 9:58 AM EST) Sodium 141 135 - 145 mmol/L [facility] Potassium 4.2 3.3 - 5.1 mmol/L [facility] Chloride 110(H) 96 - 108 mmol/L [facility] Carbon Dioxide 29 22 - 29 mmol/L [facility] Anion Gap 6(L) 12 - 20 [facility] Urea Nitrogen (BUN) 14 9 - 16 mg/dL [facility] Creatinine, Serum 0.83 0.5 - 1.4 mg/dL [facility] Estimated Glomerular Filt Rate >60 [facility] Comment:Chronic Kidney Disea se: Estimated GFR < 60 mL/min/[id number] Kidney Disease: Estimated GFR < 15 mL/min/1.73m2 Glucose 95 60 - 115 mg/dL [facility] Calcium 8.9 8.4 - 10.2 mg/dL [facility] Bilirubin, Total 0.3 0.0 - 1.0 mg/dL [facility] Aspartate Amino Transferase 34(H) 5 - 31 U/L [facility] Alanine Aminotransferase 25 0 - 31 U/L [facility] Total Protein 6.5 6.5 - 8.0 g/dL [facility] Albumin Level 4.0 3.5 - 5.0 g/dL [facility] Alkaline Phosphatase 76 39 - 117 U/L [facility] Blood Venous blood specimen / Unknown 04/19/2024 9:58 AM EST 04/19/2024 11:34 AM EST Nataliya Bates MD LAB BLOOD ORDERABLES Final Result [facility] [address] [place] [phone] * Troponin T 5th Generation (04/08/2024 3:59 PM EST) Blood Venous blood specimen / Unknown Historical Provider LAB BLOOD ORDERABLES Leonora l Result * Basic Metabolic Panel (04/08/2024 3:59 PM EST) Blood Venous blood specimen / Unknown Historical Provider LAB BLOOD ORDERABLES Leonora l Result from Last 3 Months Insurance [facility] [address] Care Teams Inspector Watch Train Relationship Specialty Start Date End Date Marina Abraham NP [address] [place] [phone] PCP - General Family Medicine 05/11/23 Flavio Jackson FNP Nurse Practitioner Family Medicine 03/14/23
--- OUTSIDE RECORDS SUMMARY | 2024-06-04 18:33 | XMS_ITS | Encounter Summary ---
Author Organization [employer] Address [address] [facility] 7t [place] [address] Care Team Providers Care Certified Ophthalmic Medical Technician Name Role Phone CiarachuckFlavio MALTHOUSE LABORER Unavailable Unavailable Marina Abraham NP Primary Care Provider [phone] Encounter Details Date Type Department Care Team (Late st Contact Info) Description 04/01/2024 Orders Only [facility] MEDICINE [address] [place], [place] [phone] [place]us [place] RN Uncomplicated opioid dependence (CMS/HCC) [...] Questionnaire Data Not on file 1 06/07/2022 Housing Stability Answer Date Recorded What is [...] 10:30 AM EDT Office Visit [facility] MEDICINE 230 [place], [place] [phone] Fernando Nieto MD 230 [place], [place] [phone] Scheduled Orders Name Type Priority Associated Diagnoses Orde r Schedule Hepatitis C Antibody with Reflex to HCV, RNA, Quantitative, Real-Time PCR Lab Routine Uncomplicated opioid dependence (CMS/HCC) Expected: 04/01/2024 (Approximate), Expires: 04/01/2025 HIV-1/2 Antigen and Antibodies, Fourth Generation, with Reflexes Lab Routine Uncomplicated opioid dependence (CMS/HCC) Expected: 04/01/2024 (Approximate), Expires: 04/01/2025 Hepatic Function Panel Lab Routine Uncomplicated opioid dependence (CMS/HCC) Expected: 04/01/2024 (Approximate), Expires: 04/01/2025 documented as of this encounter Visit Diagnoses Diagnosis Uncomplicated opioid dependence (CMS/HCC) documented in this encounter Additional Health Concerns Assessment Noted Time PHQ-9 Depression Total Score: 4 04/06/20 23 10:05 AM EST documented as of this encounter Care Teams Certified Ophthalmic Medical Technician Relationship Specialty Start Date End Date Mairna Abraham NP [address] [place] [address] PCP - General Family Medicine 05/11/23 Flavio Jackson FNP Nurse Practitioner Family Medicine 03/14/23 documented as of this encounter
--- OUTSIDE RECORDS SUMMARY | 2024-06-04 18:33 | XMS_ITS | Encounter Summary ---
Author Organization [employer] Address [address] [place] [address] 7[place] [address] Care Team Providers Care Metal Bed Assembler Name Role Phone Renata Loredo COMMISSARY REPRESENTATIVE Primary Care Provider [phone] Goldie Michael REHABILITATION SERVICES COUNSELOR Primary Care Provider [phone] Flavio Jackson COMMISSARY REPRESENTATIVE Unavailable Unavailable Marina Abraham REHABILITATION SERVICES COUNSELOR Primary Care Provider [phone] Reason for Visit * Reason Comments Med Refill Encounter Details Date Type Department Care Team (Late st Contact Info) Description 02/13/2023 Refill [facility] MEDICINE 230 [place], [place] [phone] CeciliaRenata, [facility] 230 [place], [place] [phone] Hyperlipidemia, unspecified hyperlipidemia type Social History Tobacco [...] encounter Miscellaneous Notes * Telephone Encounter - Edda Cross RN - 02/16/2023 9:07 AM EST Meds. Que for approval to new PCP. * Telephone Encounter - Edda Cross RN - 02/16/2023 9:07 AM EST Please schedule for TP apt. With new PCP. * Telephone Encounter - LALA Vazquez - 02/15/2023 5:28 PM EST Patient never under my medical care. Please route to PCP and schedule TP visit with Goldie when available. Thank you! documented in this encounter Plan of Treatment Upcoming Encounters Date Type Department Care Team (Late st Contact Info) Description 06/28/2024 10:30 AM EDT Office Visit [facility] MEDICINE 230 [place] [address] Fernando Nieto MD 230 [place] [address] documented as of this encounter Visit Diagnoses Diagnosis Hyperlipidemia, unspecified hyperlipidemia type documented in this encounter Additional Health Concerns Assessment Noted Time PHQ-9 Depression Total Score: 2 02/03/20 23 1:49 PM EDT documented as of this encounter Care Teams Metal Bed Assembler Relationship Specialty Start Date End Date Renata Loredo FNP [address] [place] [address] PCP - General Family Medicine 06/07/22 02/14/23 Goldie Michael NP [address] [place] [address] PCP - General Family Medicine 02/15/23 05/10/23 Marina Abraham NP [address] [place] [address] PCP - General Family Medicine 05/11/23 Flavio Jackson FNP 230 [place] [address] Nurse Practitioner Family Medicine 03/14/23 documented as of this encounter
--- OUTSIDE RECORDS SUMMARY | 2024-06-04 18:33 | XMS_ITS | Encounter Summary ---
Author Organization [employer] Address [address] [facility] 7t [place] [address] Care Team Providers Care Assurance Associate Name Role Phone ManuelJaydenFlavio PROJECT CONTROLS SPECIALIST Unavailable Unavailable Marina Abraham NP Primary Care Provider [phone] Encounter Details Date Type Department Care Team (Late st Contact Info) Description 04/08/2024 Orders Only [facility] [address] [place], [place] [phone] Provider, MD Jam Social History Tobacco Use Types Packs/Day Years [...] Description 06/28/2024 10:30 AM EDT Office Visit [facility] MEDICINE 230 [place], [place] [phone] Fernando Nieto MD 230 [place], [place] [phone] documented as of this encounter Procedures Procedure Name Priority Date/Time Associated Diagnosis Comments TROPONIN T 5TH GENERATION Routine 04/08/2024 3:59 PM EST BASIC METABOLIC PANEL Routine 04/08/2024 3:59 PM EST documented in this encounter Results * Troponin T 5th Generation (04/08/2024 3:59 PM EST) Blood Venous blood specimen / Unknown [facility] Provider LAB BLOOD ORDERABLES Leonora l Result * Basic Metabolic Panel (04/08/2024 3:59 PM EST) Blood Venous blood specimen / Unknown [facility] Provider LAB BLOOD ORDERABLES Leonora l Result documented in this encounter Visit Diagnoses Not on filedocumented in this encounter Additional Health Concerns Assessment Noted Time PHQ-9 Depression Total Score: 4 04/06/20 23 10:05 AM EST documented as of this encounter Care Teams Assurance Associate Relationship Specialty Start Date End Date Marina Abraham NP [address] [place] [address] PCP - General Family Medicine 05/11/23 Flavio Jackson FNP Nurse Practitioner Family Medicine 03/14/23 documented as of this encounter
--- OUTSIDE RECORDS SUMMARY | 2024-06-04 18:33 | XMS_ITS | Encounter Summary ---
Author Organization [employer] Address [address] [place] [address] 7t [place] [address] Care Team Providers Care Senior Software Systems Engineer Name Role Phone Flavio Jackson CARTOGRAPHY/MAPPING TECHNICIAN Unavailable Unavailable Marina Abraham NP Primary Care Provider [phone] Reason for Visit * Reason Comments Abnormal stool Encounter Details Date Type Department Care Team ([facility] st Contact Info) Description 06/04/2024 2:20 PM EST Office Visit [facility] [address] [place] [address] [phone] Name, MD Emiliano [address] [place] [address] Abnormal findings in stool (Primary Dx) Social History Tobacco Use Types [...] AM EDT documented as of this encounter Last Filed Vital Signs Vital Sign Reading Time Taken Comments Blood Pressure 108/80 06/04/2024 2:29 PM EST Pulse 80 06/04/2024 2:29 PM EST Temperature 36.7 ??C (98 ??F) 06/04/2024 2:29 PM EST Respiratory Rate 16 06/04/2024 2:29 PM EST Oxygen Saturation 98% 06/04/2024 2:29 PM EST Inhaled Oxygen Concentration - - Weight 57.2 kg (126 lb) 06/04/2024 2:29 PM EST Height - - Body Mass Index 23.05 04/19/2024 8:56 AM EST documented in this encounter Progress Notes * Emiliano Martínez MD - 06/04/2024 2:20 PM EST Subjective Patient ID: Shauna Zaragoza is a 63 y.o. female who presents for Abnormal stool. Patient comes concerned about 2 years of abnormal stool patterns. The patient thinks she has seen parasites in her stool. She tells me her daughter had similar symptoms. She does not have any weight loss, no rash, no travel outside the [place], no diarrhea, no blood in the stool. Review of Systems Constitutional: Negative for chills and fever. HENT: Negative for sore throat. Respiratory: Negative for cough, shortness of breath and wheezing. Cardiovascular: Negative for chest pain, palpitations and leg swelling. Gastrointestinal: Negative for abdominal pain. Visit Vitals BP 108/80 (BP Location: Left arm, Patient Position: Sitting, BP Cuff Size: Adult) Pulse 80 Temp 98 ??F (36.7 ??C) (Temporal) Resp 16 Wt 126 lb (57.2 kg) SpO2 98% BMI 23.05 kg/m?? Smoking Status Every Day BSA 1.58 m?? Objective Physical Exam Constitutional: Appearance: Normal appearance. Cardiovascular: Rate and Rhythm: Normal rate and regular rhythm. Heart sounds: No murmur heard. No gallop. Pulmonary: Effort: Pulmonary effort is normal. No respiratory distress. Breath sounds: Normal breath sounds. No wheezing. Abdominal: Tenderness: There is no abdominal tenderness. Musculoskeletal: Right lower leg: No edema. Left lower leg: No edema. Neurological: Mental Status: She is alert. Assessment/Plan Diagnoses and all orders for this visit: Abnormal findings in stool Comments: I recommended evaluation with testing listed below. Further recommendation based on the results. Orders: - CBC auto differential; Future - Ova and Parasites; Future documented in this encounter Plan of Treatment Upcoming Encounters Date Type Department Care Team (Late st Contact Info) Description 06/28/2024 10:30 AM EDT Office Visit [facility] MEDICINE 230 [place] [address] Fernando Nieto MD 230 [place] [address] Scheduled Orders Name Type Priority Associated Diagnoses Orde r Schedule Ova and Parasites Microbiology Routine Abnormal findings in stool Expected: 06/04/2024 (Approximate), Expires: 06/04/2025 documented as of this encounter Goals Goal Patient Goal Type Associated Problems Recent Progress Patient-Stated? Author Keep your medical appointments Lifestyle No Mitchell Mendiola, CHRISTIAN documented as of this encounter Procedures Procedure Name Priority Date/Time Associated Diagnosis Comments CBC WITH AUTO DIFFERENTIAL Routine 06/04/2024 2:29 PM EST Abnormal findings in stool documented in this encounter Results * (ABNORMAL) CBC auto differential (06/04/2024 2:29 PM EST) White Blood Count 3.2(L) 4.8 - 10.8 X10*3/uL [facility] Red Blood Count 4.12(L) 4.20 - 5.50 X10*6/uL [facility] Hemoglobin 12.7 12.0 - 16.0 g/dl [facility] Hematocrit 38.7 37.0 - 47.0 % [facility] Mean Corpuscular Volume 93.9 80.0 - 98.0 fL [facility] Mean Corpuscular Hemoglobin 30.8 27.0 - 33.0 pg [facility] Mean Corpuscular HGB Conc 32.8 31.0 - 35.0 g/dl [facility] Red Cell Distribution Width 12.7 11.0 - 16.0 % [facility] Platelet Count 172 160 - 400 X10*3/uL [facility] Mean Platelet Volume 10.5 9.4 - 12.3 fL [facility] Neutrophils Percent Auto 43.7(L) 45 - 73 % [facility] Imm Gran Pct Auto 0.0 0.0 - 0.4 % [facility] Lymphocytes Percent Auto 44.6(H) 20 - 40 % [facility] Monocytes Percent Auto 10.1 2 - 11 % [facility] Eosinophils Percent Auto 1.3 0 - 4 % [facility] Basophils Percent Auto 0.3 0 - 2 % [facility] NRBC Pct Auto 0.0 0.0 - 0.2 /100WBC [facility] Neutrophils Absolute Auto 1.4(L) 2.0 - 8.3 x10*3/uL [facility] Imm Gran Abs Auto 0.00 0.00 - 0.03 X10*3/uL [facility] Lymphocytes Absolute Auto 1.4 1.2 - 4.9 X10*3/uL [facility] Monocytes Absolute Auto 0.3 0.1 - 1.2 X10*3/uL [facility] Eosinophils Absolute Auto 0.0 0.0 - 0.4 X10*3/uL [facility] Basophils Absolute Auto 0.0 0.0 - 0.2 X10*3/uL [facility] NRBC Abs Auto 0.000 0.0 - 0.012 X10*3/uL [facility] Blood Venous blood specimen / Unknown 06/04/2024 2:29 PM EST 06/04/2024 4:04 PM EST us Emiliano Name LAB BLOOD ORDERABLES Final Resul t [facility] [address] [place] [address] [phone] documented in this encounter Visit Diagnoses Diagnosis Abnormal findings in stool- Primary Nonspecific abnormal finding in stool contents documented in this encounter Additional Health Concerns Assessment Noted Time PHQ-9 Depression Total Score: 0 04/19/19 25 11:45 AM EST documented as of this encounter Care Teams Senior Software Systems Engineer Relationship Specialty Start Date End Date Marina Abraham NP [address] [place] [address] PCP - General Family Medicine 05/11/23 Flavio Jackson FNP Nurse Practitioner Family Medicine 03/14/23 documented as of this encounter
--- OUTSIDE RECORDS SUMMARY | 2024-06-04 18:33 | XMS_ITS | Encounter Summary ---
Author Organization [employer] Address [address] [facility] 7[place] [address] Care Team Providers Care Director Of Collections And Archives Name Role Phone ManuelJaydenFlavio TRACK SUPERINTENDENT Unavailable Unavailable Marina Abraham NP Primary Care Provider [phone] Encounter Details Date Type Department Care Team (Late st Contact Info) Description 05/21/2024 Telephone [facility] MEDICINE 230 [place], [place] [phone] Kait Fatima RN Social History Tobacco Use Types Packs/Day Years [...] is your housing situation today? I have felicianorahul skinner 06/23/[address] you [...] Description 06/28/2024 10:30 AM EDT Office Visit [facility] MEDICINE 230 [place] [address] Fernando Nieto MD [address] [place] [address] documented as of this encounter Visit Diagnoses Not on filedocumented in this encounter Additional Health Concerns Assessment Noted Time PHQ-9 Depression Total Score: 0 04/19/19 25 11:45 AM EST documented as of this encounter Care Teams Director Of Collections And Archives Relationship Specialty Start Date End Date Marina Abraham NP 230 [place] [address] PCP - General Family Medicine 05/11/23 Flavio Jackson FNP Nurse Practitioner Family Medicine 03/14/23 documented as of this encounter
== END 2024-06-04 14:48 | disposition home or self-care (01) ==
LOC: HO.HHCL 14:47
PROVIDERS: Visit Provider Internal Medicine Geriatric Medicine
DX: R19.5 Other fecal abnormalities (principal)
CPT/HCPCS: 36415; 85025

== ENCOUNTER 2024-06-05 15:26 | Outpatient (REF) | payer MEDICAID, SELFPAY ==
--- OUTSIDE RECORDS SUMMARY | 2024-06-07 17:32 | XMS_ITS | Encounter Summary ---
Author Organization [employer] Address [address] [place] [address] 7 [place] [address] Care Team Providers Care Carbon Rod Inserter Name Role Phone Flavio Jackson DIAMOND WHEEL EDGER Unavailable Unavailable Marina Abraham NP Primary Care Provider [phone] Reason for Visit * Reason Onset Date Comments Med Refill 06/07/2024 Encounter Details Date Type Department Care Team ([facility] st Contact Info) Description 06/07/2024 Telephone [facility] MEDICINE 230 [place], [place] [phone] Marina Abraham, SUDHEER 230 [place], [place] [phone] Med Refill Social History Tobacco Use Types Packs/Day Years [...] * Telephone Encounter - Ana Jose - 06/07/2024 10:10 AM EST ;/patient walked in requesting medication refill on metoprolol tartrate (Lopressor) 25 MG tablet however this medication is on patient's chart.Patient also missed her appointment with PCP and is requesting refill on this medication due to sheran out of medication. Please contact patient to number on chart if any questions or concerns. documented in this encounter Plan of Treatment Upcoming Encounters Date Type Department Care Team ([facility] st Contact Info) Description 06/28/2024 10:30 AM EDT Office Visit [facility] MEDICINE [address] [place] [address] Fernando Nieto MD [address] [place] [address] documented as of this encounter Goals Goal Patient Goal Type Associated Problems Recent Progress Patient-Stated? Author Keep your medical appointments Lifestyle No Mitchell Mendiola, CHRISTIAN documented as of this encounter Visit Diagnoses Not on filedocumented in this encounter Additional Health Concerns Assessment Noted Time PHQ-9 Depression Total Score: 0 04/19/19 25 11:45 AM EST documented as of this encounter Care Teams Carbon Rod Inserter Relationship Specialty Start Date End Date Marina Abraham NP 230 [place] [address] PCP - General Family Medicine 05/11/23 Flavio Jackson FNP Nurse Practitioner Family Medicine 03/14/23 documented as of this encounter
--- OUTSIDE RECORDS SUMMARY | 2024-06-07 17:32 | XMS_ITS | Encounter Summary ---
Author Organization [employer] Address [address] [place] [address] 7t [place] [address] Care Team Providers Care Cruise Staff Member Name Role Phone Flavio Jackson FRIT BURNER Unavailable Unavailable Marina Abraham NP Primary Care Provider [phone] Reason for Visit * Reason Comments OBAT Encounter Details Date Type Department Care Team (Latest Contact Info) Description 06/04/2024 1:45 PM EST Clinical Support [facility] MEDICINE 230 [place], [place] [phone] Mitchell Mendiola, RN 230 [place] [address] Uncomplicated opioid dependence (CMS/HCC) (Primary Dx) Social [...] Description 06/28/2024 10:30 AM EDT Office Visit [facility] MEDICINE 230 [place], [place] [phone] Fernando Nieto MD [address] [place] [address] documented as of this encounter Goals Goal Patient Goal Type Associated Problems Recent Progress Patient-Stated? Author Keep your medical appointments Lifestyle No Mitchell Mendiola RN documented as of this encounter Procedures Procedure Name Priority Date/Time Associated Diagnosis Comments POCT AGAPITO-14 URINE DRUG SCREEN Routine 06/04/2024 1:50 PM EST Uncomplicated opioid dependence ([facility]) documented in this encounter Results * POCT [...] documented as of this encounter Care Teams Cruise Staff Member Relationship Specialty Start Date End Date Marina Abraham NP [address] [place] [address] PCP - General Family Medicine 05/11/23 Flavio Jackson FNP Nurse Practitioner Family Medicine 03/14/23 documented as of this encounter
--- OUTSIDE RECORDS SUMMARY | 2024-06-07 17:32 | XMS_ITS | Encounter Summary ---
Author Organization [employer] Address [address] [place] [address] 7t [place] [address] Care Team Providers Care Machinist General Name Role Phone Renata Loredo MEDICARE BILLER Primary Care Provider [phone] Goldie Michael ASBESTOS ABATEMENT TECHNICIAN Primary Care Provider [phone] Flavio Jackson MEDICARE BILLER Unavailable Unavailable Marina Abraham ASBESTOS ABATEMENT TECHNICIAN Primary Care Provider [phone] Reason for Visit * Reason Comments Med Refill Encounter Details Date Type Department Care Team (Late st Contact Info) Description 02/13/2023 Refill [facility] MEDICINE 230 [place], [place] [phone] ScotlandRenata, [facility] 230 [place], [place] [phone] Hyperlipidemia, unspecified hyperlipidemia type Social History Tobacco [...] Description 06/28/2024 10:30 AM EDT Office Visit [facility] MEDICINE 230 [place] [address] Fernando Nieto MD [address] [place] [address] documented as of this encounter Visit Diagnoses Diagnosis Hyperlipidemia, unspecified hyperlipidemia type documented in this encounter Additional Health Concerns Assessment Noted Time PHQ-9 Depression Total Score: 2 02/03/20 23 1:49 PM EDT documented as of this encounter Care Teams Machinist General Relationship Specialty Start Date End Date Renata Loredo FNP [address] [place] [address] PCP - General Family Medicine 06/07/22 02/14/23 Goldie Michael NP [address] [place] [address] PCP - General Family Medicine 02/15/23 05/10/23 Marina Abraham NP [address] [place] [address] PCP - General Family Medicine 05/11/23 Flavio Jackson FNP 230 [place] [address] Nurse Practitioner Family Medicine 03/14/23 documented as of this encounter
--- OUTSIDE RECORDS SUMMARY | 2024-06-07 17:32 | XMS_ITS | Encounter Summary ---
Author Organization [employer] Address [address] [facility] 7t [place] [address] Care Team Providers Care Vac Press Operator Name Role Phone CiarachuckFlavio BLADE GRINDER Unavailable Unavailable Marina Abraham NP Primary Care Provider [phone] Encounter Details Date Type Department Care Team [...] Description 06/28/2024 10:30 AM EDT Office Visit [facility] MEDICINE 230 [place] [address] Fernando Nieto MD 230 [place] [address] documented as of this encounter Goals Goal Patient Goal Type Associated Problems Recent Progress Patient-Stated? Author Keep your medical appointments Lifestyle No Mitchell Mendiola RN documented as of this encounter Visit Diagnoses Not on filedocumented in this encounter Additional Health Concerns Assessment Noted Time PHQ-9 Depression Total Score: 0 04/19/19 25 11:45 AM EST documented as of this encounter Care Teams Vac Press Operator Relationship Specialty Start Date End Date Marina Abraham NP 230 [place] [address] PCP - General Family Medicine 05/11/23 Flavio Jackson FNP Nurse Practitioner Family Medicine 03/14/23 documented as of this encounter
--- OUTSIDE RECORDS SUMMARY | 2024-06-07 17:32 | XMS_ITS | Encounter Summary ---
Author Organization [employer] Address [address] [place] [address] 7[place] [address] Care Team Providers Care Computer Network Support Specialist Name Role Phone Fernanda Goldie PURSE SEINING HAND Primary Care Provider [phone] Flavio Jackson DISCIPLINARY HEARING OFFICER Unavailable Unavailable Marina Abraham PURSE SEINING HAND Primary Care Provider [phone] Reason for Visit * Reason Comments Med Refill Encounter Details Date Type Department Care Team (Late st Contact Info) Description 02/16/2023 Refill [facility] MEDICINE [address] [place] [address] [place], Renata, [facility] 230 [place] [address] Hyperlipidemia, unspecified hyperlipidemia type Social History Tobacco [...] Description 06/28/2024 10:30 AM EDT Office Visit [facility] MEDICINE [address] [place] [address] Fernando Nieto MD [address] [place] [address] documented as of this encounter Visit Diagnoses Diagnosis Hyperlipidemia, unspecified hyperlipidemia type documented in this encounter Additional Health Concerns Assessment Noted Time PHQ-9 Depression Total Score: 2 02/03/20 23 1:49 PM EDT documented as of this encounter Care Teams Computer Network Support Specialist Relationship Specialty Start Date End Date Goldie Michael NP 230 [place] [address] PCP - General Family Medicine 02/15/23 05/10/23 Marina Abraham NP [address] [place] [address] PCP - General Family Medicine 05/11/23 Flavio Jackson FNP [address] [place] [address] Nurse Practitioner Family Medicine 03/14/23 documented as of this encounter
--- OUTSIDE RECORDS SUMMARY | 2024-06-07 17:32 | XMS_ITS | Encounter Summary ---
Author Organization [employer] Address [address] [facility] 7t [place] [address] Care Team Providers Care University Librarian Name Role Phone ManuelJaydenFlavio VALUE STREAM MANAGER Unavailable Unavailable Marina Abraham NP Primary Care Provider [phone] Encounter Details Date Type Department Care Team (Late st Contact Info) Description 05/21/2024 Telephone [facility] MEDICINE 230 [place], [place] [phone] Kait Fatima RN Social History Tobacco Use [...] Description 06/28/2024 10:30 AM EDT Office Visit [facility] MEDICINE [address] [place] [address] Fernando Nieto MD 230 [place] [address] documented as of this encounter Visit Diagnoses Not on filedocumented in this encounter Additional Health Concerns Assessment Noted Time PHQ-9 Depression Total Score: 0 04/19/19 25 11:45 AM EST documented as of this encounter Care Teams University Librarian Relationship Specialty Start Date End Date Marina Abraham NP [address] [place] [address] PCP - General Family Medicine 05/11/23 Flavio Jackson FNP Nurse Practitioner Family Medicine 03/14/23 documented as of this encounter
--- OUTSIDE RECORDS SUMMARY | 2024-06-07 17:32 | XMS_ITS | Encounter Summary ---
Author Organization [employer] Address [address] [place] [address] [address] [place] [address] Care Team Providers Care Perfect Binder Feeder Offbearer Name Role Phone Flavio Jackson LALA Unavailable Unavailable Marina Abraham NP Primary Care Provider [phone] Reason for Visit * Reason Onset Date Comments Med Refill 05/28/2024 Encounter Details Date Type Department Care Team (Late st Contact Info) Description 05/28/2024 Refill [facility] [address] [place], [place] [phone] Kait Fatima, RN Uncomplicated opioid dependence (CMS/HCC) [...] Description 06/28/2024 10:30 AM EDT Office Visit [facility] [address] [place] [address] Fernando Nieto MD [address] [place] [address] documented as of this encounter Visit Diagnoses Diagnosis Uncomplicated opioid dependence (CMS/HCC) documented in this encounter Additional Health Concerns Assessment Noted Time PHQ-9 Depression Total Score: 0 04/19/19 25 11:45 AM EST documented as of this encounter Care Teams Perfect Binder Feeder Offbearer Relationship Specialty Start Date End Date Marina Abraham NP [address] [place] [address] PCP - General Family Medicine 05/11/23 Flavio Jackson FNP Nurse Practitioner Family Medicine 03/14/23 documented as of this encounter
--- OUTSIDE RECORDS SUMMARY | 2024-06-07 17:32 | XMS_ITS | Encounter Summary ---
Author Organization [employer] Address [address] [place] [address] 7t [place] [address] Care Team Providers Care Linen Sorter Name Role Phone Flavio Jackson CROSS TIE CUTTER Unavailable Unavailable Marina Abraham NP Primary Care Provider [phone] Reason for Visit * Reason Comments Abnormal stool Encounter Details Date Type Department Care Team ([facility] st Contact Info) Description 06/04/2024 2:20 PM EST Office Visit [facility] [address] [place] [address] [phone] Name, MD Emiliano [address] [place] [id number] Abnormal findings in stool (Primary Dx) Social [...] Description 06/28/2024 10:30 AM EDT Office Visit [facility] [address] [place] [address] Fernando Nieto MD [address] [place] [address] Scheduled Orders Name Type Priority Associated Diagnoses [...] Blood Count 3.2(L) 4.8 - 10.8 X10*3/uL [facility] Red Blood Count 4.12(L) 4.20 - 5.50 X10*6/uL [facility] Hemoglobin 12.7 12.0 - 16.0 g/dl [facility] Hematocrit 38.7 37.0 - 47.0 % [facility] Mean Corpuscular Volume 93.9 80.0 - 98.0 fL [facility] Mean Corpuscular Hemoglobin 30.8 27.0 - 33.0 pg [facility] Mean Corpuscular HGB Conc 32.8 31.0 - 35.0 g/dl [facility] Red Cell Distribution Width 12.7 11.0 - 16.0 % [facility] Platelet Count 172 160 - 400 X10*3/uL [facility] Mean Platelet Volume 10.5 9.4 - 12.3 fL [facility] Neutrophils Percent Auto 43.7(L) 45 - 73 % [facility] Imm Gran Pct Auto 0.0 0.0 - 0.4 % [facility] Lymphocytes Percent Auto 44.6(H) 20 - 40 % [facility] Monocytes Percent Auto 10.1 2 - 11 % [facility] Eosinophils Percent Auto 1.3 0 - 4 % [facility] Basophils Percent Auto 0.3 0 - 2 % [facility] NRBC Pct Auto 0.0 0.0 - 0.2 /100WBC [facility] Neutrophils Absolute Auto 1.4(L) 2.0 - 8.3 x10*3/uL [facility] Imm Gran Abs Auto 0.00 0.00 - 0.03 X10*3/uL [facility] Lymphocytes Absolute Auto 1.4 1.2 - 4.9 X10*3/uL [facility] Monocytes Absolute Auto 0.3 0.1 - 1.2 X10*3/uL [facility] Eosinophils Absolute Auto 0.0 0.0 - 0.4 X10*3/uL [facility] Basophils Absolute Auto 0.0 0.0 - 0.2 X10*3/uL [facility] NRBC Abs Auto 0.000 0.0 - 0.012 X10*3/uL [facility] Blood Venous blood specimen / Unknown 06/04/2024 2:29 PM EST 06/04/2024 4:04 PM EST us Emiliano Name LAB BLOOD ORDERABLES Final Resul t [facility] [address] [place] [address] [phone] documented in this encounter Visit Diagnoses Diagnosis Abnormal findings in stool- Primary Nonspecific abnormal finding in stool contents documented in this encounter Additional Health Concerns Assessment Noted Time PHQ-9 Depression Total Score: 0 04/19/19 25 11:45 AM EST documented as of this encounter Care Teams Linen Sorter Relationship Specialty Start Date End Date Marina Abraham NP [address] [place] [address] PCP - General Family Medicine 05/11/23 Flavio Jackson FNP Nurse Practitioner Family Medicine 03/14/23 documented as of this encounter
--- OUTSIDE RECORDS SUMMARY | 2024-06-07 17:32 | XMS_ITS | Encounter Summary ---
Author Organization [employer] Address [address] [facility] 7t [place] [address] Care Team Providers Care Lab Director Name Role Phone CiarachuckFlavio WELDER GUN Unavailable Unavailable Marina Abraham NP Primary Care Provider Encounter Details Date Type Department Care Team (Late st Contact Info) Description 04/01/2024 Orders Only [facility] [address] [place], [place] [phone] [place] RN Uncomplicated opioid dependence (CMS/HCC) [...] Description 06/28/2024 10:30 AM EDT Office Visit [facility] [address] [place], [place] [phone] Fernando Nieto MD [address] [place], [place] [phone] Scheduled Orders Name Type Priority Associated Diagnoses [...] documented as of this encounter Care Teams Lab Director Relationship Specialty Start Date End Date Marina Abraham NP [address] [place] [address] PCP - General Family Medicine 05/11/23 Flavio Jackson FNP Nurse Practitioner Family Medicine 03/14/23 documented as of this encounter
--- OUTSIDE RECORDS SUMMARY | 2024-06-07 17:32 | XMS_ITS | Encounter Summary ---
Author Organization [employer] Address [address] [place] [address] 7 [place] [address] Care Team Providers Care Software Test Technician Name Role Phone Flavio Jackson GAMES MANAGER Unavailable Unavailable Marina Abraham NP Primary Care Provider [phone] Reason for Visit * Reason Onset Date Comments No Show 06/03/2024 Encounter Details Date Type Department Care Team ([facility] st Contact Info) Description 06/03/[address] [facility] MEDICINE [address] [place], [place] [phone] Marina Abraham, SUDHEER [address] [place], [place] [phone] No Show Social History Tobacco Use Types [...] AM EDT Office Visit [facility] [address] [place] [address] Fernando Nieto MD [address] [place] [address] documented as of this encounter Visit Diagnoses Not on filedocumented in this encounter Additional Health Concerns Assessment Noted Time PHQ-9 Depression Total Score: 0 04/19/19 11:45 AM EST documented as of this encounter Care Teams Software Test Technician Relationship Specialty Start Date End Date Marina Abraham NP [address] [place] [address] PCP - General Family Medicine 05/11/23 Flavio Jackson FNP Nurse Practitioner Family Medicine 03/14/23 documented as of this encounter
--- OUTSIDE RECORDS SUMMARY | 2024-06-07 17:32 | XMS_ITS | Encounter Summary ---
Author Organization [employer] Address [address] [place] [address] [address] [place] [address] Care Team Providers Care Information Analyst Name Role Phone Flavio Jackson LALA Unavailable Unavailable Marina Abraham NP Primary Care Provider [phone] Reason for Visit * Reason Comments Med Refill Encounter Details Date Type Department Care Team ([facility] st Contact Info) Description 05/11/2023 Refill [facility] [address] [place], [place] [phone] Name, MD Emiliano [address] [place] [address] Hyperlipidemia, unspecified hyperlipidemia type Social History Tobacco [...] Description 06/28/2024 10:30 AM EDT Office Visit [facility] [address] [place] [address] Fernando Nieto MD [address] [place] [address] documented as of this encounter Visit Diagnoses Diagnosis Hyperlipidemia, unspecified hyperlipidemia type documented in this encounter Additional Health Concerns Assessment Noted Time PHQ-9 Depression Total Score: 4 04/06/20 10:05 AM EST documented as of this encounter Care Teams Information Analyst Relationship Specialty Start Date End Date Marina Abarham NP [address] [place] [address] PCP - General Family Medicine 05/11/23 Flavio Jackson FNP Nurse Practitioner Family Medicine 03/14/23 documented as of this encounter
--- OUTSIDE RECORDS SUMMARY | 2024-06-07 17:32 | XMS_ITS | Encounter Summary ---
Author Organization [employer] Address [address] [place] [address] 7 [place] [address] Care Team Providers Care Electromechanical Technologist Name Role Phone Flavio Jackson LALA Unavailable Unavailable Marina Abraham NP Primary Care Provider [phone] Reason for Visit * Reason Onset Date Comments Chart Prep 05/23/2024 Encounter Details Date Type Department Care Team ([facility] st Contact Info) Description 05/23/2024 Telephone [facility] MED[facility]INE [address] [place], [place] [phone] Crystal Zamudio MA Chart Prep Social History [...] Description 06/28/2024 10:30 AM EDT Office Visit [facility] [address] [place] [address] Fernando Nieto MD [address] [place] [address] documented as of this encounter Visit Diagnoses Not on filedocumented in this encounter Additional Health Concerns Assessment Noted Time PHQ-9 Depression Total Score: 0 04/19/19 25 11:45 AM EST documented as of this encounter Care Teams Electromechanical Technologist Relationship Specialty Start Date End Date Marina Abraham NP [address] [place] [address] PCP - General Family Medicine 05/11/23 Flavio Jackson FNP Nurse Practitioner Family Medicine 03/14/23 documented as of this encounter
--- OUTSIDE RECORDS SUMMARY | 2024-06-07 17:32 | XMS_ITS | Encounter Summary ---
Author Organization [employer] Address [address] [place] [address] 7[address] [place] [address] Care Team Providers Care Certified Dietary Manager Name Role Phone Flavio Jackson LALA Unavailable Unavailable Marina Abraham NP Primary Care Provider [phone] Reason for Visit * Reason Onset Date Comments Med Refill 05/09/2024 Encounter Details Date Type Department Care Team (Late st Contact Info) Description 05/09/2024 Refill [facility] MEDICINE [address] [place], [place] [phone] [place] RN Uncomplicated opioid dependence (CMS/HCC) [...] Visit [facility] MEDICINE [address] [place] [address] Fernando Nieto MD [address] [place] [address] documented as of this encounter Visit Diagnoses Diagnosis Uncomplicated opioid dependence (CMS/HCC) documented in this encounter Additional Health Concerns Assessment Noted Time PHQ-9 Depression Total Score: 0 04/19/19 25 11:45 AM EST documented as of this encounter Care Teams Certified Dietary Manager Relationship Specialty Start Date End Date Marina Abraham NP [address] [place] [address] PCP - General Family Medicine 05/11/23 Flavio Jackson FNP Nurse Practitioner Family Medicine 03/14/23 documented as of this encounter
--- OUTSIDE RECORDS SUMMARY | 2024-06-07 17:33 | XMS_ITS | Encounter Summary ---
Author Organization [employer] Address [address] [facility] 7t [place] [address] Care Team Providers Care Practice Physician Name Role Phone ManuelJaydenFlavio ASSEMBLER TRACTOR Unavailable Unavailable Marina Abraham NP Primary Care Provider [phone] Encounter Details Date Type Department Care Team (Late st Contact Info) Description 04/08/2024 Orders Only [facility] [address] [place], [place] [phone] Provider, MD Jam Social History Tobacco Use [...] your housing situation today? I have feliciano siknner 06/23/[address] you li [...] Description 06/28/2024 10:30 AM EDT Office Visit [facility] MEDICINE [address] [place], [place] [phone] Fernando Nieto MD [address] [place], [place] [phone] documented as of this encounter Procedures Procedure Name Priority Date/Time Associated Diagnosis Comments TROPONIN T 5TH GENERATION Routine 04/08/2024 3:59 PM EST BASIC METABOLIC PANEL Routine 04/08/2024 3:59 PM EST documented in this encounter Results * Troponin T 5th Generation (04/08/2024 3:59 PM EST) Blood Venous blood specimen / Unknown [facility] Provider LAB BLOOD ORDERABLES Leonora l Result * Basic Metabolic Panel (04/08/2024 3:59 PM EST) Blood Venous blood specimen / Unknown [facility] Provider LAB BLOOD ORDERABLES Leonora l Result documented in this encounter Visit Diagnoses Not on filedocumented in this encounter Additional Health Concerns Assessment Noted Time PHQ-9 Depression Total Score: 4 04/06/20 23 10:05 AM EST documented as of this encounter Care Teams Practice Physician Relationship Specialty Start Date End Date Marina Abraham NP [address] [place] [address] PCP - General Family Medicine 05/11/23 Flavio Jackson FNP Nurse Practitioner Family Medicine 03/14/23 documented as of this encounter
--- OUTSIDE RECORDS SUMMARY | 2024-06-07 17:33 | XMS_ITS | Clinical Summary ---
Author Organization [employer] Address [address] [place] [address] 7[address] [place] [address] Care Team Providers Care Sausage Smoker Name Role Phone ManuelJaydenFlavio MARBLE CHIP TERRAZZO WORKER Unavailable Unavailable Marina Abraham NP Primary Care Provider [phone] Allergies No known active allergies Medications * [...] first sign of panic attack. F/U with [facility] clinician Russell and plans to seek outpatient [...] first sign of panic attack. F/U with [facility] clinician Russell. Today 02/02/2023 provider informed pt [...] first sign of panic attack. F/U with [facility] clinician Russell. F/U with me in 6 [...] first sign of panic attack. F/U with [facility] clinician Russell. F/U with me in 3-4 [...] Encounters Date Type Department Care Team Description 06/07/2024 Telephone [facility] [address] [place] [address] Marina Abraham, SUDHEER Med Refill 06/04/2024 2:20 PM EST Office Visit [facility] [address] [place] [address] Name, MD Emiliano Abnormal findings in stool (Primary Dx) 06/04/2024 1:45 PM EST Clinical Support [address] [address] Mitchell Mendiola RN Uncomplicated opioid dependence (CMS/HCC) (Primary Dx) 06/04/2024 Travel 06/03/[address] [address] Marina Abraham NP No Show 05/28/[address] [address] Kait Fatima RN Uncomplicated opioid dependence (CMS/HCC) 05/23/[address] [address] Crystal Zamudio MA Chart Prep 05/21/2024 Telephone [facility] [address] [place] [address] Kait Fatima RN 05/09/[address] [address] [place]us Hill RN Uncomplicated opioid dependence ([facility]/HCC) 04/19/2024 9:00 AM EST Office Visit [address] [address] Chelo Dyer FNP Palpitation (Primary Dx); Hyperlipidemia, unspecified hyperlipidemia type; Muscle spasm; JOSUE (generalized anxiety disorder) 04/19/2024 Orders Only [address] [address] Fernando Nieto MD 04/19/[address] [address] Shauna Baker RN 04/08/2024 Orders Only [facility] [address] [place] [address] Jam Pereira MD 04/08/[address] [address] Marina Abraham NP ER Follow-up 04/04/2024 11:00 AM EST Clinical Support [address] [address] Kali Silver RN Uncomplicated opioid dependence ([facility]/HCC) (Primary Dx) 04/04/2024 Travel 04/01/2024 Orders Only [address] [address] [place] Hill RN Uncomplicated opioid dependence (CMS/HCC) 03/27/[address] [address] [place] Hill RN Uncomplicated opioid dependence ([facility]/HCC) from Last 3 Months Immunizations Name Administration [...] Description 06/28/2024 10:30 AM EDT Office Visit [facility] [address] [place], [place] [phone] Fernando Nieto MD [address] [place], [place] [phone] Health Maintenance Due Date Last Done Comments [...] Patient-Stated? Author Keep your medical appointments Lifestyle Mitchell Umaña, oil well engineer Procedure Name Priority Date/Time Associated Diagnosis Comments [...] Blood Count 3.2(L) 4.8 - 10.8 X10*3/uL [facility] Red Blood Count 4.12(L) 4.20 - 5.50 X10*6/uL [facility] Hemoglobin 12.7 12.0 - 16.0 g/dl [facility] Hematocrit 38.7 37.0 - 47.0 % [facility] Mean Corpuscular Volume 93.9 80.0 - 98.0 fL [facility] Mean Corpuscular Hemoglobin 30.8 27.0 - 33.0 pg [facility] Mean Corpuscular HGB Conc 32.8 31.0 - 35.0 g/dl [facility] Red Cell Distribution Width 12.7 11.0 - 16.0 % [facility] Platelet Count 172 160 - 400 X10*3/uL [facility] Mean Platelet Volume 10.5 9.4 - 12.3 fL [facility] Neutrophils Percent Auto 43.7(L) 45 - 73 % [facility] Imm Gran Pct Auto 0.0 0.0 - 0.4 % [facility] Lymphocytes Percent Auto 44.6(H) 20 - 40 % [facility] Monocytes Percent Auto 10.1 2 - 11 % [facility] Eosinophils Percent Auto 1.3 0 - 4 % [facility] Basophils Percent Auto 0.3 0 - 2 % [facility] NRBC Pct Auto 0.0 0.0 - 0.2 /100WBC [facility] Neutrophils Absolute Auto 1.4(L) 2.0 - 8.3 x10*3/uL [facility] Imm Gran Abs Auto 0.00 0.00 - 0.03 X10*3/uL [facility] Lymphocytes Absolute Auto 1.4 1.2 - 4.9 X10*3/uL [facility] Monocytes Absolute Auto 0.3 0.1 - 1.2 X10*3/uL [facility] Eosinophils Absolute Auto 0.0 0.0 - 0.4 X10*3/uL [facility] Basophils Absolute Auto 0.0 0.0 - 0.2 X10*3/uL [facility] NRBC Abs Auto 0.000 0.0 - 0.012 X10*3/uL [facility] Blood Venous blood specimen / Unknown 06/04/2024 2:29 PM EST 06/04/2024 4:04 PM EST us Emiliano Name LAB BLOOD ORDERABLES Final Resul t [facility] [address] [place] [phone] * POCT AGAPITO-14 Urine Drug Screen [...] / Unknown 06/04/2024 1:50 PM EST Result [facility] Cesar Manning MD POINT OF CARE TEST ENTER/EDIT OR DERABLES Final Result * Hepatitis C Viral RNA, Quantitative, Real-Time PCR (04/19/2024 9:58 AM EST) [facility] Hepatitis C Viral Load <15 NOT DETECTED NOT DETECTED IU/mL [facility] HCV Log PCR <1.18 NOT DETECTED NOT DETECTED Log IU/mL [facility] Comment:For additional infor javi, please refer [email or web address]/faq/[email or web address](This link is being provided for informational/educational purposes only.)THIS TEST WAS PERFORMED AT:[id number] [place] [phone] PRECIADO MD 04/19/2024 9:58 AM EST 04/22/2024 11:20 AM EST Result [facility] Fernando Nieto MD LAB BLOOD ORDERABLES Final Res ult Performing Organization Address [facility] Co de Phone Number [facility] [address] [place] [phone] * (ABNORMAL) Hepatitis C Antibody with Reflex to HCV, RNA, Quantitative, Real- Time PCR (04/19/2024 9:58 AM EST) [facility] Hepatitis C Antibody Reactive( A) Nonreactive [facility] Comment:Presumptive evidence of antibodies to HCV. 04/19/2024 9:58 AM EST 04/19/2024 11:34 AM EST Result [facility] Fernando Nieto MD LAB BLOOD ORDERABLES Final Res ult Performing Organization Address City/[facility] Co de Phone Number [facility] [address] [place] [phone] * HIV-1/2 Antigen and Antibodies, Fourth Generation, with Reflexes (04/19/2024 9:58 AM EST) [facility] HIV AB/AG Nonreactive Nonreactive [facility] Comment:HIV-1 p24 Ag and/or HIV-1/HIV-2 Ab not detected.A test result that is nonreactive does not exclude thepossibility of exposure to or infection with HIV-1 and/orHIV-2. Nonreactive results in this assay for individualswith prior exposure to HIV-1 and/or HIV-2 may be due toantigen and antibody levels that are below the limit ofdetection of this assay.The [employer] HIV Ag/Ab Combo assay result andsupplemental assay results should be interpreted inconjunction with the patient's clinical presentation,history and other laboratory results. If the results areinconsistent with clinical evidence, additional testing issuggested to confirm the result. 04/19/2024 9:58 AM EST 04/19/2024 11:34 AM EST us Fernando Nieto MD LAB BLOOD ORDERABLES Final Res ult [facility] [address] [place] [phone] * Lipase (04/19/2024 9:58 AM EST) [facility] Lipase 17 8 - 78 U/L [facility] Blood Venous blood specimen / Unknown 04/19/2024 9:58 AM EST 04/19/2024 11:34 AM EST us Nataliya Bates MD LAB BLOOD ORDERABLES Final Result [facility] [address] [place] [phone] * Amylase (04/19/2024 9:58 AM EST) Amylase 76 28 - 100 U/L [facility] Blood Venous blood specimen / Unknown 04/19/2024 9:58 AM EST 04/19/2024 11:34 AM EST us Nataliya Bates MD LAB BLOOD ORDERABLES Final Result Performing Organization Address [facility]/ZIP Co de Phone Number [facility] [address] [place] [phone] * Hepatic Function Panel (04/19/2024 9:58 AM EST) Bilirubin, Direct 0.1 0.0 - 0.5 mg/dL [facility] 04/19/2024 9:58 AM EST 04/19/2024 11:34 AM EST us Fernando Nieto MD LAB BLOOD ORDERABLES Final Res ult Performing Organization Address City/[facility] Co de Phone Number [facility] [address] [place] [phone] * Lipid Panel, Standard (04/19/2024 9:58 AM EST) Triglycerides 115 <150 mg/dL [facility] Comment:Desirable Triglyceri de: less than 150 mg/dLBorderline High Triglyceride 150-199 mg/dLHigh Triglyceride: 200-499 mg/dLVery High Triglyceride: greater than or equal to 5OO mg/dL Cholesterol 146 <200 mg/dL [facility] Comment:Desirable Cholestero l: less than 200 mg/dLBorderline High Cholesterol: 200-239 mg/dLHigh Cholesterol: greater than 239 mg/dL LDL Cholesterol Calculated 61 <100 mg/dL [facility] Comment:Desirable LDL: less than 100 mg/dLNear Optimal/Above Optimal LDL: 110- 129 mg/dLBorderline High LDL: 130-159 mg/dLHigh LDL: 160-189 mg/dLVery High LDL: greater than or equal to 190 mg/dL HDL Cholesterol 62 >40 mg/dL [facility] Comment:Desirable HDL: great er than 40 mg/dL Note: This HDL assay may give artificially low results in patients with liver disease. Blood Venous blood specimen / Unknown 04/19/2024 9:58 AM EST 04/19/2024 11:34 AM EST us Chelo Dyer MARBLE CHIP TERRAZZO WORKER LAB BLOOD ORDERABLES Final Res ult [facility] [address] [place] [phone] * (ABNORMAL) Comprehensive Metabolic Panel (04/19/2024 9:58 AM EST) Sodium 141 135 - 145 mmol/L [facility] Potassium 4.2 3.3 - 5.1 mmol/L [facility] Chloride 110(H) 96 - 108 mmol/L [facility] Carbon Dioxide 29 22 - 29 mmol/L [facility] Anion Gap 6(L) 12 - 20 [facility] Urea Nitrogen (BUN) 14 9 - 16 mg/dL [facility] Creatinine, Serum 0.83 0.5 - 1.4 mg/dL [facility] Estimated Glomerular Filt Rate >60 [facility] Comment:Chronic Kidney Disea se: Estimated GFR < 60 mL/min/1.83g6Jjxnkk Kidney Disease: Estimated GFR < 15 mL/min/1.73m2 Glucose 95 60 - 115 mg/dL [facility] Calcium 8.9 8.4 - 10.2 mg/dL [facility] Bilirubin, Total 0.3 0.0 - 1.0 mg/dL [facility] Aspartate Amino Transferase 34(H) 5 - 31 U/L [facility] Alanine Aminotransferase 25 0 - 31 U/L [facility] Total Protein 6.5 6.5 - 8.0 g/dL [facility] Albumin Level 4.0 3.5 - 5.0 g/dL [facility] Alkaline Phosphatase 76 39 - 117 U/L [facility] Blood Venous blood specimen / Unknown 04/19/2024 9:58 AM EST 04/19/2024 11:34 AM EST Nataliya Bates MD LAB BLOOD ORDERABLES Final Result [facility] [address] [place] [phone] * Troponin T 5th Generation (04/08/2024 3:59 PM EST) Blood Venous blood specimen / Unknown Historical Provider LAB BLOOD ORDERABLES Leonora l Result * Basic Metabolic Panel (04/08/2024 3:59 PM EST) Blood Venous blood specimen / Unknown Historical Provider LAB BLOOD ORDERABLES Leonora l Result from Last 3 Months Insurance [facility] C3 HSN FULL Care Teams Sausage Smoker Relationship Specialty Start Date End Date Marina Abraham NP [address] [place] [phone] PCP - General Family Medicine 05/11/23 Flavio Jackson FNP Nurse Practitioner Family Medicine 03/14/23
== END 2024-06-05 15:27 | disposition home or self-care (01) ==
LOC: HO.HHCLNP 15:26
PROVIDERS: Visit Provider Internal Medicine Geriatric Medicine
DX: R19.5 Other fecal abnormalities (principal)
CPT/HCPCS: 87177; 87209

== ENCOUNTER 2024-09-23 13:11 | Outpatient (AMB) | payer MEDICAID, SELFPAY ==
--- NOTE | 2024-09-23 13:12 | MHC.OFFVIS ---
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 Discussed with the patient as well as reviewed PCP note. Few months back, it seems that she has some chest discomfort and mild headache and went to ER. Troponins were unremarkable and EKG was also unremarkable. Thought to be hypertension related symptoms and she was put on beta-blockers. Subsequently, those symptoms improved but she still gets vague sensations as if she is having 'emptiness' in the chest. Nonspecific chest fluttering. In the past, no known coronary disease or myocardial infarction or cardiomyopathy. Smoker and last smoked about 3 weeks ago. History of substance abuse including heroin but not in many years. She is here for further evaluation. [facility] Medical History Hypercholesterolemia Hypertension Surgical History History of excision of mass History of tooth extraction Family History Brother History of lung cancer Mother History of skin cancer Brother History of skin cancer Social History Alcohol intake: never Patient Tobacco Use Status: Current everyday Tobacco user Tobacco use type: Cigarette Cigarettes Per Day: 4 Years Smoked: 15 Female Reproductive History Menstrual Age of Menarche: 13 Review of Systems Const Denies weakness ENT Denies dizziness Card Reports chest pain, Denies chest pain with activity, Denies syncope, Denies rapid heart rate, Denies pedal edema, Denies edema, Denies leg edema, Denies lightheadedness, Denies palpitations, Reports dyspnea, Denies dyspnea on exertion and Denies orthopnea Resp Denies cough, Reports dyspnea and Denies dyspnea on exertion GI Denies hematochezia and Denies change in stool character Musc Denies abnormal gait, Denies muscle cramps, Denies muscle weakness, Denies numbness, Denies radiating pain into limb and Denies tingling Neuro Denies abnormal gait, Denies dizziness, Denies syncope, Denies numbness, Denies tingling and Denies weakness Psych Reports anxiety Endo Denies palpitations Physical Exam Vital Signs: Last Vital Signs Pulse 67 09/23/24 13:13 BP 118/60 09/23/24 13:13 BMI result Body Mass Index 22.6 Const General: comfortable and no acute distress Orientation/consciousness: patient oriented x3 HEENT Other: Unremarkable Head: Yes normal to inspection Neck Neck: Yes normal visual inspection Chest Chest palpation & inspection: normal inspection of the chest Resp Auscultation: clear to auscultation bilaterally Cardio Palpation: normal PMI Heart sounds: S1 normal heart sound present, S2 normal heart sound present, no gallops, no murmurs and no rubs GI Palpation (GI): Soft to palpation Back/Spine/Pelvis Other: unremarkable Skin General skin exam: no rashes or lesions noted Neuro General: patient oriented x3 Extrem General: Yes normal to inspection Psych Mental Status: mental status grossly normal Office Procedures EKG Details: EKG with underlying sinus rhythm at 67/Min; cannot exclude old septal infarct; [place]. [id number]-[id number], Complete Assessment & Plan Assessment & Plan (1) Heart palpitations: Code(s): R00.2 - Palpitations Category: Medical (2) Chest discomfort: Code(s): R07.89 - Other chest pain Category: Medical Plan Somewhat atypical symptoms but patient has multiple cardiovascular risk factors including smoking, prior substance abuse, hypertension on meds, dyslipidemia on statins. We will perform comprehensive workup including echocardiogram, stress test and Holter monitor. Follow-up after the above. Discussion Notes During our discussion, I explained the potential causes of her palpitations and outlined the diagnostic tests I plan to undertake to assess her heart function. I highlighted the benefits of obtaining an echocardiogram and performing a stress test, detailing how these procedures would provide crucial insights into her heart's health without significant risk. I also discussed the need for a Holter monitor to track her heart's activity over extended periods to capture any abnormal rhythms. The patient consented to these tests, acknowledging the importance of identifying any underlying cardiac issues early. I advised her on medication adherence, highlighting how metoprolol might stabilize her blood pressure and reduce palpitations. We talked about lifestyle factors contributing to her condition, such as her recently ceased smoking habit and physical activity level. I reassured her about her efforts towards a healthier lifestyle, commending her for seeking medical advice promptly. Patient was informed and verbally consented to the use of an ambient scribe for clinic note documentation during this visit. Orders: Orders CA echo transthoracic complete Today R00.2 - Palpitations, R07.89 - Other chest pain CA echo stress exercise Today R07.89 - Other chest pain ECG 7 day holter monitor Today R00.2 - Palpitations Patient Instructions: - Continue taking your medications as prescribed. - Monitor your blood pressure regularly at home. - Participate in the scheduled echocardiogram and stress test. - Wear the Holter monitor as instructed to capture heart activity. - Maintain smoking cessation efforts. - Contact healthcare provider if you experience severe symptoms. - Follow up with our office as needed for further evaluation or concerns. Coding Level of Care Code New Pt Level 4 (64990) Complex EM visit Add On G2211 Diagnoses Heart palpitations R00.2 Chest discomfort R07.89 CPT Codes EKG - CPT: 13675-[id number], Complete ([id number])
[2024-09-23 13:13] VITALS: BP 118/60; PULSE 67; BMI 22.6
--- OUTSIDE RECORDS SUMMARY | 2024-09-23 14:37 | XMS_ITS | Encounter Summary ---
Author Organization [employer] Address [address] [place] [address] 7 [place] [address] Care Team Providers Care Identity Management Developer Name Role Phone Goldie Michael MAGNETIC TESTING TECHNICIAN Primary Care Provider + Flavio Jackson ELECTRICAL HELPER Unavailable Unavailable Marina Abraham MAGNETIC TESTING TECHNICIAN Primary Care Provider [phone] Chelo Dyer ELECTRICAL HELPER Primary Care Provider [phone] Reason for Visit * Reason Comments Med Refill Encounter Details Date Type Department Care Team (Late st Contact Info) Description 02/16/2023 Refill [facility] [address] [place] [phone] [facility] [address] [place] [address] Hyperlipidemia, unspecified hyperlipidemia type Social History Tobacco [...] Care Team (Late st Contact Info) Description 10/18/2024 10:00 AM EDT Clinical Support [facility] [address] [place] [address] Kait Fatima, CHRISTIAN documented as of this encounter Visit Diagnoses Diagnosis Hyperlipidemia, unspecified hyperlipidemia type documented in this encounter Additional Health Concerns Assessment Noted Time PHQ-9 Depression Total Score: 2 02/03/20 23 1:49 PM EDT documented as of this encounter Care Teams Identity Management Developer Relationship Specialty Start Date End [place] [address] PCP - General Family Medicine 02/15/23 05/10/23 Marina Abraham NP [address] [place] [phone] PCP - General Family Medicine 05/11/23 06/19/24 Chelo Dyer FNP [address] [place] [phone] PCP - General Family Medicine 06/20/24 Flavio Jackson FNP [address] [place] [phone] Nurse Practitioner Family Medicine 03/14/23 06/19/24 documented as of this encounter
== END 2024-09-23 13:42 | disposition home or self-care (01) ==
LOC: HO.HCS 13:11
PROVIDERS: PCP Internal Medicine; Visit Provider Internal Medicine
DX: R00.2 Palpitations (principal); R07.89 Other chest pain
CPT/HCPCS: 93010; 99204

== ENCOUNTER → 2024-09-23 13:11 | Outpatient (BNVA) | payer MEDICAID, SELFPAY | PROVIDERS: PCP Internal Medicine; Visit Provider Internal Medicine | DX: R00.2 Palpitations (principal); R07.89 Other chest pain | CPT/HCPCS: 93005; 99202 ==

== ENCOUNTER → 2024-10-28 09:49 | Outpatient (REF) | payer MEDICAID, SELFPAY ==
--- NOTE | 2024-10-28 09:52 | HM_ITS ---
* Total monitoring time 6 days and 14 hours. * Underlying rhythm is sinus with an average rate of 73/Min. * Rare supraventricular ectopy. * Rare ventricular ectopy. * No significant pauses or high-grade AV blocks. * Palpitations in patient diary correlates with sinus rhythm and ventricular ectopy. MTDD
--- NOTE | 2024-10-28 09:52 | CA_ITS ---
Transthoracic Echocardiogram Patient (Last, First, Middle): Shauna Zaragoza M Gender: Female Date of : 1960 Age: 64 Procedure Date: 10/28/2024 Procedure Type: Transthoracic Echocardiogram Location: OP Height: 157.48 cm Weight: 55.79 kg BSA: 1.55 m2 Heart Rate: bpm BP: 118 / 60 mmHg Retail Sales Advisor: HIRAL Referring MD: Dean Batista MD Symptoms: R00.2 - Palpitations Study Quality: Adequate ECG Rhythm: Sinus Conclusions: - The left ventricular systolic function is normal. The calculated ejection fraction is 62% by biplane method. - There is mild tricuspid valve regurgitation. Findings Left Ventricle Normal left ventricular cavity size. There is normal left ventricular wall thickness. The left ventricular systolic function is normal. The calculated ejection fraction is 62% by biplane method. There is no evidence of regional wall motion abnormalities. Diastolic function is normal for age. Right Ventricle Normal right ventricular cavity size and systolic function. Atria Both atria are normal in size. Aortic Valve There is a normal trileaflet aortic valve. There is no aortic valve stenosis. There is no aortic valve regurgitation. Mitral Valve The mitral valve appears normal. There is trace mitral valve regurgitation. There is no mitral valve stenosis. Pulmonic Valve The pulmonic valve is likely normal. Tricuspid Valve The tricuspid valve was not well visualized. There is mild tricuspid valve regurgitation. There is no evidence of pulmonary hypertension. Great Vessels The asc aorta is normal in size. Venous The inferior vena cava is normal in size and collapses greater than 50% with inspiration. Pericardium/Pleural There is no evidence of pericardial effusion. Prior Study Comparison No prior study available for comparison. Measurements 2D Linear Measurements IVSd: 0.86 0.6-0.9/0.6-1.0 cm LVIDd: 3.88 3.9-5.3/4.2-5.9 cm LVIDd Index: 2.50 2.4-3.2/2.2-3.1 cm/m2 LVIDs: 2.30 2.0-3.6 cm LVPWd: 0.83 0.7-1.1 cm LA Diam: 2.60 2.7-3.8/3.0-4.0 cm LAIDs Index: 1.68 1.5-2.3 cm/m2 LV Mass: 118.39 67-162/88-224 g LV Mass Index: 76.38 43-95/49-115 g/m2 LVOT Diam: 2.00 3.0+(-)1.3 cm 2D Systolic Function EF 4C: 59.20 >55% EF 2C: 63.00 >55% EF BiP: 62.20 >55% Mitral Valve MV Pk E: 0.69 MV PK A: 0.74 MV Decel Time: 241.00 E/A: 0.90 E'Lateral: 10.10 E'Medial: 6.74 E/E' Med: 10.20 E/E' Lat: 6.80 PHT: 71.00 MVA PHT: 3.10 Decel Elmore: 2.86 Aortic Valve AoV Pk Deangelo: 1.26 AoV Mn Deangelo: 0.90 AoV VTI: 0.29 AoV Pk Grad: 6.00 Aov Mn Grad: 4.00 SANDIP Cont.VTI: 2.37 LVOT LVOT Pk Deangelo: 0.98 LVOT Mn Deangelo: 0.69 LVOT VTI: 0.22 LVOT Pk Grad: 4.00 LVOT Mn Grad: 2.00 LVOT Diam: 2.00 LVOT Area: 3.14 Diastolic Function MV Pk E: 0.69 MV Pk A: 0.74 E/A: 0.90 E'Medial: 6.74 E/E' Med: 10.20 E' Laterial: 10.10 E/E' Lat: 6.80 Right Ventricle TAPSE (mm): 23.30 TVS' Deangelo: 10.40 Tricuspid Valve TR Pk Deangelo: 2.24 TR Pk Grad: 20.00 RA Press: 3.00 RVSP: 23.00 Great Vessels Aorta Sinus of Valsalva: 3.36 2.0-3.5 cm Ao Asc: 3.30 2.1-3.4 cm Updated in Other Vendor System with Status of Final Dean Batista MD electronically signed on 10/28/2024 1:13:28 PM with status of Final
--- OUTSIDE RECORDS SUMMARY | 2024-10-28 10:28 | XMS_ITS | Patient Health Record ---
Author Organization [facility] Address [address] [place] [address] Care Team Providers Care Supervisor Pressing Department Name Role Phone Lamine Hanna [phone] Reason For Referral No Information Plan Of Treatment No Information
--- OUTSIDE RECORDS SUMMARY | 2024-10-28 10:28 | XMS_ITS | Encounter Summary ---
Author Organization [employer] Address [address] [place] [address] 7 [place] [address] Care Team Providers Care Planer Hand Name Role Phone Chelo Dyer Primary Care Provider [phone] Reason for Visit * Reason Onset Date Comments Med Refill 10/07/2024 Encounter Details Date Type Department Care Team ([facility] st Contact Info) Description 10/07/2024 Refill [facility] [address] [place] [address] Chelo Dyer FNP [address] [place] [address] Social History Tobacco Use Types Packs/Day Years Used Date Smoking Tobacco: Former Cigarettes Passive Smoke Exposure: Past Alcohol Use Standard Drinks/Week Comments Yes 0 (1 standard drink = 0.6 oz pur e alcohol) rare drinking Depression Answer Date Recorded Patient Health Questionnaire-9 Score 0 04/19/2024 Patient Health Questionnaire-9 Score 0 04/19/2024 Last PHQ-9: Questionnaire Data Not on file 0 04/19/2024 Housing Stability Answer Date Recorded What is your housing situation today? I have feliciano skinner 07/26/[address] you li ve. Do you have problems with any of the following? None of the above 07/26/2024 Food Insecurity Answer Date Recorded Within the past 12 months, y ou worried that your food would run out before you got money to buy more: Sometimes True 2024 Within the past 12 months,th e food you bought just didn't last and you didn't have enough money to get more: Sometimes True 07/26/2024 Transportation Answer Date Recorded In the past 12 months, has l ack of transportation kept you from medical appts, meetings, work or from getting things needed for daily living? No 07/26/2024 Utilities Answer Date Recorded In the past 12 months, has t he electric, gas, oil or water company threatened to shut off services in your home? No 07/26/2024 Depression Answer Date Recorded Patient Health Questionnaire-2 Score 0 04/19/2024 Internet Access Answer Date Recorded Internet Access Q1 Yes 07/26/2024 Internet Access Q2 Not on file 07/26/2024 Comments Unknown Sex and Gender Information Value Date Recorded Sex Assigned at Female 02/07/2022 10:14 AM EDT Legal Sex Female 10:14 AM EDT Gender Identity Female 02/07/2022 10:14 AM EDT Sexual Orientation Straight 02/07/2022 10 :14 AM EDT documented as of this encounter Miscellaneous Notes * Telephone Encounter - LALA Tsang - 10/08/2024 12:52 PM EDT Approving, but needs appt for additional refills. * Telephone Encounter - Alie Kim LPN - 10/07/2024 2:37 PM EDT Last seen 09/03/24. * Telephone Encounter - Emiliano Bustamante - 10/07/2024 2:26 PM EDT TC from pt requesting medication refill. Medications needing refill : fluticasone (Flonase) 50 MCG/ACT nasal spray To be sent to: [facility] - [place], [place] - [address] [facility] documented in this encounter Plan of Treatment Upcoming Encounters Date Type Department Care Team (Late st Contact Info) Description 11/22/2024 10:15 AM EDT Clinical Support [facility] [address] [place] [address] Kait Fatima, RN documented as of this encounter Goals Goal Patient Goal Type Associated Problems Recent Progress Patient-Stated? Author Increase coping skills to promote long-term recovery and improve ability to perform daily activities General On track( 025 10:54 AM EDT) No Kait Fatima, RN Keep your medical appointments Lifestyle No Mitchell Mendiola RN documented as of this encounter Visit Diagnoses Not on filedocumented in this encounter Additional Health Concerns Assessment Noted Time PHQ-9 Depression Total Score: 0 04/19/19 11:45 AM EST documented as of this encounter Care Teams Planer Hand Relationship Specialty Start Date End Date Chelo Dyer FNP [address] [place] [address] PCP - General Family Medicine 06/20/24 documented as of this encounter
== END ==
LOC: HO.CARD 09:49
PROVIDERS: PCP Internal Medicine Geriatric Medicine; Visit Provider Internal Medicine
DX: R00.2 Palpitations (principal); R07.89 Other chest pain
CPT/HCPCS: 93242; 93306

== ENCOUNTER → 2024-10-28 09:52 | Outpatient (BNV) | payer MEDICAID, SELFPAY | PROVIDERS: PCP Internal Medicine Geriatric Medicine; Visit Provider Internal Medicine | DX: I36.1 Nonrheumatic tricuspid (valve) insufficiency (principal) | CPT/HCPCS: 93306 ==

== ENCOUNTER → 2024-11-12 10:40 | Outpatient (REF) | payer MEDICAID, SELFPAY ==
--- NOTE | 2024-11-12 10:42 | CA_ITS ---
Acquisition Time: 2024-11-12 11:09:34 Total Exercise Time: 00:05:05 Test Indications: Medications: METOPROLOL ATROVASTATIN Protocol: ARTIS Max HR: 151 BPM 96% of Pred: 156 BPM Max BP: 130/80 mmHG Max Work Load: 7.0 METS Exercise stress test with exercise 5 mins 5 secs of Artis Protocol, achieving 94% MPHR, with reports of SOB, no chest pain, with isolated PACs and PVCs- reported fluterring with these ectopies, with normotensive repsonse to exercise. Without any EKG changes meeting criteria for ischemia. In recovery, breathing returned to baseline. Echo images obtained by tech at rest and post peak exercise. Definity contrast utilized. Test reviewed with Dr. Batista. Referred By: Dean Batista Electronically Signed By: Jeison Lau
--- OUTSIDE RECORDS SUMMARY | 2024-11-12 11:21 | XMS_ITS | Patient Health Record ---
Author Organization [facility] Address [address] [place] [address] Care Team Providers Care Cooperative Extension Agent Name Role Phone Lamine Hanna [phone] Reason For Referral No Information Plan Of Treatment No Information
--- OUTSIDE RECORDS SUMMARY | 2024-11-12 11:21 | XMS_ITS | Encounter Summary ---
Author Organization [employer] Address [address] [place] [address] 7 [place] [address] Care Team Providers Care Assembler Brazer Name Role Phone Chelo Dyer Primary Care Provider [phone] Reason for Visit * Reason Onset Date Comments Med Refill 10/18/2024 Encounter Details Date Type Department Care Team ([facility] st Contact Info) Description 10/18/2024 Telephone [facility] [address] [place], [place] [phone] Chelo Dyer FNP [address] [place] [address] Med Refill Social History Tobacco Use Types [...] encounter Miscellaneous Notes * Telephone Encounter - Alie Kim LPN - 10/18/2024 12:59 PM EDT Medication was sent to [facility] on 09/03/24 with 2 refills. * Telephone Encounter - Parveen Gonzalez - 10/18/2024 12:53 PM EDT TC from pt requesting medication refill. Medications needing refill : metoprolol tartrate (Lopressor) 25 MG tablet To be sent to: [facility] - [place], [place] - [address] [facility] documented in this encounter Plan of Treatment Upcoming Encounters Date Type Department Care Team (Late st Contact Info) Description 11/22/2024 10:15 AM EDT Clinical Support [facility] [address] [place] [address] Kait Fatima, RN documented as of this encounter Goals Goal Patient Goal Type Associated Problems Recent Progress Patient-Stated? Author Increase coping skills to promote long-term recovery and improve ability to perform daily activities General On track( 025 10:54 AM EDT) No Saranya Fatimah, RN Keep your medical appointments Lifestyle No Mitchell Mendiola, CHRISTIAN documented as of this encounter Visit Diagnoses Not on filedocumented in this encounter Additional Health Concerns Assessment Noted Time PHQ-9 Depression Total Score: 0 04/19/19 11:45 AM EST documented as of this encounter Care Teams Assembler Brazer Relationship Specialty Start Date End Date Chelo Dyer FNP [address] [place] [address] PCP - General Family Medicine 06/20/24 documented as of this encounter
== END ==
LOC: HO.CARD 10:40
PROVIDERS: Visit Provider Internal Medicine
DX: R07.89 Other chest pain (principal)
CPT/HCPCS: 93350; Q9957

== ENCOUNTER → 2024-11-12 10:42 | Outpatient (BNV) | payer MEDICAID, SELFPAY | DX: R06.02 Shortness of breath (principal); I49.1 Atrial premature depolarization; I49.3 Ventricular premature depolarization | CPT/HCPCS: 93016; 93018; 93350; 93352 ==

== ENCOUNTER 2024-12-19 14:08 | Outpatient (AMB) | payer MEDICAID, SELFPAY ==
[2024-12-19 14:13] VITALS: BP 90/72; PULSE 80; BMI 23.7
--- NOTE | 2024-12-19 14:13 | A.OFFVIS_ITS ---
Vital Signs 12/19/24 14:13 Height 5 ft 2 in Weight 129 lb 10.109 oz BMI 23.7 BP 90/72 Blood Pressure Location Lt brachial Position Sitting Pulse 80 Pulse Source Pulse Oximeter Intake Visit Reasons: f/up echo/ stress holter Aws Developer Required: No Accompanied by: Self / Same As Patient Allergies No Known Allergies Allergy (Verified 04/01/21 13:09) Medication List - Last Reconciled 12/19/24 by Dean Batista MD atorvastatin 20 mg PO DAILY blood pressure test kit-large As directed buprenorphine-naloxone 8-2 mg (Suboxone) 10 mg sublingual BID cyclobenzaprine 5 mg PO TID PRN metoprolol tartrate 25 mg PO BID olmesartan 20 mg PO DAILY HPI Comments Details: Shauna returns for follow-up. Recently seen in consultation regarding palpitations and chest discomfort. Discussed with the patient as well as reviewed PCP note. Few months back, it seems that she has some chest discomfort and mild headache and went to ER. Troponins were unremarkable and EKG was also unremarkable. Thought to be hypertension related symptoms and she was put on beta-blockers. Subsequently, those symptoms improved. Nonspecific chest fluttering. In the past, no known coronary disease or myocardial infarction or cardiomyopathy. Smoker. History of substance abuse including heroin but not in many years. Since last seen, she has completed an echocardiogram, stress test and Holter monitor. Overall, she is feeling good. No new concerns. [facility] Medical History Hypertension Hypercholesterolemia Surgical History History of tooth extraction History of excision of mass Family History Brother History of lung cancer Mother History of skin cancer Brother History of skin cancer Social History Alcohol intake: never Patient Tobacco Use Status: Current everyday Tobacco user Tobacco use type: Cigarette Cigarettes Per Day: 4 Years Smoked: 15 Female Reproductive History Menstrual Age of Menarche: 13 Review of Systems Const Denies chills, Denies fatigue, Denies fever(s), Denies frequent falls, Denies weakness, Denies weight gain and Denies weight loss ENT Denies dizziness Card Denies chest pain, Denies leg edema, Denies lightheadedness, Denies palpitations, Denies dyspnea and Denies dyspnea on exertion Resp Denies cough, Denies dyspnea and Denies dyspnea on exertion GI Denies hematochezia Musc Denies abnormal gait, Denies muscle weakness, Denies numbness, Denies radiating pain into limb and Denies tingling Neuro Denies abnormal gait, Denies dizziness, Denies frequent falls, Denies numbness, Denies tingling and Denies weakness Endo Denies fatigue and Denies palpitations Physical Exam Vital Signs: Last Vital Signs Pulse 80 12/19/24 14:13 BP 90/72 12/19/24 14:13 BMI result Body Mass Index 23.7 Const General: comfortable and no acute distress Orientation/consciousness: patient oriented x3 HEENT Other: Unremarkable Head: Yes normal to inspection Neck Neck: Yes normal visual inspection Chest Chest palpation & inspection: normal inspection of the chest Resp Auscultation: clear to auscultation bilaterally Cardio Palpation: normal PMI Heart sounds: S1 normal heart sound present, S2 normal heart sound present, no gallops, no murmurs and no rubs GI Palpation (GI): Soft to palpation Back/Spine/Pelvis Other: unremarkable Skin General skin exam: no rashes or lesions noted Neuro General: patient oriented x3 Extrem General: Yes normal to inspection Psych Mental Status: mental status grossly normal Assessment & Plan Assessment & Plan (1) Heart palpitations: Code(s): R00.2 - Palpitations Category: Medical (2) Chest discomfort: Code(s): R07.89 - Other chest pain Category: Medical Plan Cardiac studies reviewed. Echocardiogram with LVEF of 60%. No wall motion abnormalities. Mild tricuspid regurgitation. In the stress test, she was able to exercise for 7 minutes on Dallin protocol. Shortness of breath but no chest pain. Isolated PACs/PVCs. No EKG evidence of ischemia. Echocardiographic portion was also unremarkable. In the Holter, underlying rhythm is sinus with an average rate of 73/Min. Rare supraventricular/ventricular ectopy. Findings discussed with patient. Overall, reassuring results. Based on the above, no clear evidence of obstructive CAD. The ectopy is also infrequent and does not require any specific management apart from the beta-blockers that she is already on. Blood pressure management. Stop smoking. Otherwise, she will call us with any ongoing concerns. Total time spent including review of data, counseling, documentation, coordination of care-32 minutes. Coding Level of Care Code Est Pt Level 4 (67470) Diagnoses Heart palpitations R00.2 Chest discomfort R07.89
--- OUTSIDE RECORDS SUMMARY | 2024-12-19 17:57 | XMS_ITS | Encounter Summary ---
Author Organization [employer] Address [address] [place] [address] [address]t [place] [address] Care Team Providers Care Marine Engineer Name Role Phone ManuelFlavio SINGLE WIRE SAW OPERATOR Unavailable Unavailable Marina Abraham EDUCATION INTERN Primary Care Provider [phone] Chelo Dyer SINGLE WIRE SAW OPERATOR Primary Care Provider [phone] Encounter Details Date Type Department Care Team ([facility] st Contact Info) Description 04/08/2024 Orders Only [facility] [address] [place], [place] [phone] Provider, MD Jam Social History Tobacco Use [...] Care Team (Late st Contact Info) Description 12/20/2024 9:15 AM EDT Office Visit [address] [address] Fernando Neito MD [address] [place] [address] 01/17/2025 10:15 AM EDT Office Visit [address] [address] Fernando Nieto MD [address] [place] [address] 02/21/2025 3:45 PM EST Office Visit [address] [address] Nasir George MD [address] [place] [address] documented as of this encounter Procedures Procedure Name Priority Date/Time Associated Diagnosis Comments TROPONIN T 5TH GENERATION Routine 04/08/2024 3:59 PM EST BASIC METABOLIC PANEL Routine 04/08/2024 3:59 PM EST documented in this encounter Results * Troponin T 5th Generation (04/08/2024 3:59 PM EST) Blood Venous blood specimen / Unknown us Historical Provider LAB BLOOD ORDERABLES Leonora l Result * Basic Metabolic Panel (04/08/2024 3:59 PM EST) Blood Venous blood specimen / Unknown us Historical Provider LAB BLOOD ORDERABLES Leonora l Result documented in this encounter Visit Diagnoses Not on filedocumented in this encounter Additional Health Concerns Assessment Noted Time PHQ-9 Depression Total Score: 4 04/06/20 23 10:05 AM EST documented as of this encounter Care Teams Marine Engineer Relationship Specialty Start Date End Date Marina Abraham NP [address] [place] [address] PCP - General Family Medicine 05/11/23 06/19/24 Chelo Dyer FNP [address] [place] [address] PCP - General Family Medicine 06/20/24 Flavio Jackson FNP Nurse Practitioner Family Medicine 03/14/23 06/19/24 documented as of this encounter
--- OUTSIDE RECORDS SUMMARY | 2024-12-19 17:57 | XMS_ITS | Encounter Summary ---
Author Organization [employer] Address [address] [place] [address] 7t [place] [address] Care Team Providers Care Deck Hand Name Role Phone ManuelFlavio HEAT TREAT WORKER Unavailable Unavailable Marina Abraham CHIEF ENGINEER WATERWORKS Primary Care Provider [phone] Chelo Dyer HEAT TREAT WORKER Primary Care Provider [phone] Encounter Details Date Type Department Care Team (Late st Contact Info) Description 04/01/2024 Orders Only [facility] [address] [place], [place] [phone] [place], CHRISTIAN Uncomplicated opioid dependence (CMS/HCC) Social History Tobacco [...] Description 12/20/2024 9:15 AM EDT Office Visit [facility] [address] [place] [address] Fernando Nieto MD [address] [place] [address] 01/17/2025 10:15 AM EDT Office Visit [address] [address] Fernando Nieto MD [address] [place] [address] 02/21/2025 3:45 PM EST Office Visit [address] [address] Nasir George MD [address] [place] [address] Scheduled Orders Name Type Priority Associated Diagnoses [...] Visit Diagnoses Diagnosis Uncomplicated opioid dependence (CMS/HCC) Uncomplicated opioid dependence (CMS/HCC)- Primary Tobacco use disorder documented in this encounter Additional Health Concerns Assessment Noted Time PHQ-9 Depression Total Score: 4 04/06/20 23 10:05 AM EST documented as of this encounter Care Teams Deck Hand Relationship Specialty Start Date End Date Marina Abraham NP [address] [place] [address] PCP - General Family Medicine 05/11/23 06/19/24 Chelo Dyer FNP [address] [place] [address] PCP - General Family Medicine 06/20/24 Flavio Jackson FNP Nurse Practitioner Family Medicine 03/14/23 06/19/24 documented as of this encounter
--- OUTSIDE RECORDS SUMMARY | 2024-12-19 17:57 | XMS_ITS | Encounter Summary ---
Author Organization [employer] Address [address] [place] [address] 7t [place] [address] Care Team Providers Care Blown Film Extrusion Operator Name Role Phone Chelo Dyer HALF SECTION IRONER Primary Care Provider [phone] Reason for Visit * Reason Comments Med Refill Encounter Details Date Type Department Care Team (Late st Contact Info) Description 12/04/2024 Refill [facility] [address] [place], [place] [phone] Marina Abraham, SUDHEER [address] [place], [place] [phone] Social History Tobacco Use Types Packs/Day Years [...] Description 12/20/2024 9:15 AM EDT Office Visit [address] [address] Fernando Nieto MD [address] [place] [address] 01/17/2025 10:15 AM EDT Office Visit [address] [address] Fernando Nieto MD [address] [place] [address] 02/21/2025 3:45 PM EST Office Visit [address] [address] Nasir George MD [address] [place] [address] documented as of this encounter Goals Goal Patient Goal Type Associated Problems Recent Progress Patient-Stated? Author Increase coping skills to promote long-term recovery and improve ability to perform daily activities General On track( 025 10:54 AM EDT) No Kait Fatima, CHRISTIAN Keep your medical appointments Lifestyle No Mitchell Mendiola RN documented as of this encounter Visit Diagnoses Not on filedocumented in this encounter Additional Health Concerns Assessment Noted Time PHQ-9 Depression Total Score: 0 04/19/19 11:45 AM EST documented as of this encounter Care Teams Blown Film Extrusion Operator Relationship Specialty Start Date End Date Chelo Dyer FNP [address] [place] [address] PCP - General Family Medicine 06/20/24 documented as of this encounter
--- OUTSIDE RECORDS SUMMARY | 2024-12-19 17:57 | XMS_ITS | Encounter Summary ---
Author Organization [employer] Address [address] [place] [address] 7 [place] [address] Care Team Providers Care Vacation Planner Name Role Phone Renata Loredo CELL FEED DEPARTMENT SUPERVISOR Primary Care Provider [phone] Goldie Michael SUPPLIER DEVELOPMENT MANAGER Primary Care Provider [phone] Flavio Jackson CELL FEED DEPARTMENT SUPERVISOR Unavailable Unavailable Marina Abraham SUPPLIER DEVELOPMENT MANAGER Primary Care Provider [phone] Chelo Dyer CELL FEED DEPARTMENT SUPERVISOR Primary Care Provider [phone] Reason for Visit * Reason Comments Med Refill Encounter Details Date Type Department Care Team (Late st Contact Info) Description 02/13/2023 Refill [facility] [address] [place], [place] [phone] [facility] [address] [place] [address] Hyperlipidemia, unspecified hyperlipidemia type Social History Tobacco [...] With new PCP. * [facility] 5[facility]28 PM EST Patient never under my medical care. Please route to PCP and schedule TP visit with Goldie when available. Thank you! documented in this encounter Plan of Treatment Upcoming Encounters Date Type Department Care Team (Late st Contact Info) Description 12/20/2024 9:15 AM EDT Office Visit [address] [address] Fernando Nieto MD [address] [place] [address] 01/17/2025 10:15 AM EDT Office Visit [address] [address] Fernando Nieto MD [address] [place] [address] 02/21/2025 3:45 PM EST Office Visit [address] [address] Nasir George MD [address] [place] [address] documented as of this encounter Visit Diagnoses Diagnosis Hyperlipidemia, unspecified hyperlipidemia type Uncomplicated opioid dependence (CMS/HCC)- Primary Tobacco use disorder documented in this encounter Additional Health Concerns Assessment Noted Time PHQ-9 Depression Total Score: 2 02/03/20 1:49 PM EDT documented as of this encounter Care Teams Vacation Planner Relationship Specialty Start Date End Date Renata Loredo FNP [address] [place] [address] PCP - General Family Medicine 06/07/22 02/14/23 Goldie Michael NP [address] [place] [address] PCP - General Family Medicine 02/15/23 05/10/23 Marina Abraham NP [address] [place] [address] PCP - General Family Medicine 05/11/23 06/19/24 Chelo Dyer FNP [address] [place] [address] PCP - General Family Medicine 06/20/24 Flavio Jackson FNP [address] [place] [address] Nurse Practitioner Family Medicine 03/14/23 06/19/24 documented as of this encounter
--- OUTSIDE RECORDS SUMMARY | 2024-12-19 17:57 | XMS_ITS | Clinical Summary ---
Author Organization [employer] Address [address] [place] [address] 7[address] [place] [address] Care Team Providers Care Industrial Relations Commissioner Name Role Phone Chelo Dyer SENIOR PACKAGING ENGINEER Primary Care Provider [phone] Allergies No known active allergies Medications * This document contains information received from the source organization and may not represent a complete record from that organization. ibuprofen 800 MG tablet Take 1 tablet by mouth every 8 (eight) hours. 10/09/19 21 Active lidocaine (Lidoderm) 5 % patch Place 1 patch on the skin 1 (one) time each day. May wear up to 12 hours. 12/11/19 21 Active Blood Pressure kit Use as directed Active Multiple Vitamin (Multi-Vitamin ) tablet Take 1 tablet by mouth Once per day. Active metoprolol tartrate (Lopressor) 25 MG tablet Take 1 tablet (25 mg) by mouth 2 times daily. 60 tablet 2 09/04/19 25 Active atorvastatin (Lipitor) 20 MG tablet Take 1 tablet (20 mg) by mouth Once per day. 30 tablet 11 09/04/19 25 026 Active Buprenorphine HCl-Naloxone HCl (Suboxone) 8-2 MG SL filmIndication s:Uncomplicate d opioid dependence (CMS/HCC) Place 1 Film under the tongue every 12 (twelve) hours for 28 days. Allow to dissolve slowly in the mouth without chewing or swallowing. Do not start before October 07, 2024. 56 Film 10/08/19 25 Active fluticasone (Flonase) 50 MCG/ACT nasal spray SPRAY 2 SPRAYS INTO EACH NOSTRIL EVERY DAY. SHAKE GENTLY. BEFORE FIRST USE, PRIME PUMP. AFTER USE, CLEAN TIP AND REPLACE CAP. 48 mL 10/09/19 25 Active cyclobenzaprin e (Flexeril) 10 MG tabletIndicati ons:Muscle spasm TAKE 1 TABLET BY MOUTH IN THE MORNING AND AT BEDTIME NEEDED FOR MUSCLE SPASMS FOR UP TO 10 DAYS 20 tablet 10/26/19 25 Active olmesartan (BENIcar) 20 MG tablet TAKE 1 TABLET BY MOUTH EVERY DAY 90 tablet 1 12/19/19 25 Active olmesartan (Benicar) 20 MG tablet Take 1 tablet (20 mg) by mouth Once per day. 90 tablet 1 12/06/19 25 025 Active Buprenorphine HCl-Naloxone HCl (Suboxone) 8-2 MG SL filmIndication s:Uncomplicate d opioid dependence (CMS/HCC) Place 1 Film under the tongue 2 times daily for 28 days. Do not start before December 20, 2024. 56 Film 12/21/19 25 025 Active olmesartan (Benicar) 20 MG tablet Take 1 tablet (20 mg) by mouth Once per day. 30 tablet 2 09/04/19 25 025 Discontinued(Re order (will not trigger notification to Pharmacy)) Buprenorphine HCl-Naloxone HCl (Suboxone) 8-2 MG SL filmIndication s:Uncomplicate d opioid dependence (CMS/HCC) Place 1 Film under the tongue 2 times daily for 28 days. 56 Film 11/17/19 25 025 Discontinued(Re order (will not trigger notification to Pharmacy)) Active Problems Problem Noted Date Diagnosed Date Headache around the eyes 09/03/2024 Family history of CVA 09/03/2024 Assessment & Plan (09/03/2024 2:41 PM EDT): Titrate lipitor, Consider 81 mg aspirin, pt will discuss with cardiology Primary hypertension 06/10/2024 Assessment & Plan (09/03/2024 2:41 PM EDT): Add olmesartan , future bmp ordered Upcoming visit with cardiology Assessment & Plan (06/10/2024 10:34 AM EST): Refill for metoprolol 12.5 mg twice daily given today. Advised to check BP at home 3 times per week and follow-up with RN in 3 to 4 weeks. Counseled re low salt diet/increase moderate physical activity. Non smoking, quit 8y ago. Generalized abdominal pain 09/28/2023 Assessment & Plan [...] reviewed risk/benefit of daily aspirin Encounter for wellness examination in adult 06/08 Assessment & Plan (06/23/2023 7:50 PM EDT): [...] first sign of panic attack. F/U with [facility] clinician Russell and plans to [...] first sign of panic attack. F/U with [facility] clinician Russell. Today 02/02/2023 provider [...] first sign of panic attack. F/U with [facility] clinician Russell. F/U with me [...] first sign of panic attack. F/U with [facility] clinician Russell. F/U with me [...] Encounters Date Type Department Care Team Description 12/13/2024 Refill [facility] [address] [place] [address] Kait Fatima RN Uncomplicated opioid dependence (CMS/HCC) 12/05/2024 Orders Only [facility] [address] [place] [address] Marina Abraham, SUDHEER Primary hypertension (Primary Dx) 12/04/2024 Telephone [facility] [address] [place] [address] Chelo Dyer FNP Med Refill (Pt requesting med refill for Olmesartan ) 12/04/2024 Refill [facility] [address] [place] [address] Marina Abraham NP 11/25/2024 Telephone [facility] [address] [place] [address] Chelo Dyer, SENIOR PACKAGING ENGINEER R/S appt 11/19/2024 10:15 AM EDT Clinical Support [facility] [address] [place] [address] Lexus Hill RN Uncomplicated opioid dependence (CMS/HCC) (Primary Dx) 11/19/2024 Travel 11/15/2024 Refill [facility] [address] [place] [address] [place]us Hill RN Uncomplicated opioid dependence (CMS/HCC) 10/25/2024 10:00 AM EDT Clinical Support [facility] [place] [address] Kait Fatima RN Opioid type dependence, continuous (CMS/HCC) (Primary Dx) 10/25/2024 Refill [facility] [address] [place] [address] Chelo Dyer, SENIOR PACKAGING ENGINEER Muscle spasm 10/25/2024 Telephone [facility] [address] [place] [address] Fernando Nieto MD 10/25/2024 Travel 10/18/2024 Telephone [facility] [address] [place] [address] Chelo Dyer, SENIOR PACKAGING ENGINEER Med Refill 10/07/2024 Refill [facility] [address] [place] [address] Chelo Dyer, SENIOR PACKAGING ENGINEER 10/04/2024 Refill [facility] [address] [place] [address] [place] Hill RN Uncomplicated opioid dependence (CMS/HCC) 09/25/2024 9:00 AM EDT Clinical Support [address] [address] [place] Hill RN Uncomplicated opioid dependence (CMS/HCC) (Primary Dx) 09/25/2024 Travel from Last 3 Months Immunizations Immunization Administration Dates Next Due Hep A, Adult 06/13/2003 Hep B, adult 04/14/2009,01/23/2007,12/15/2006 Influenza injectable quadriv alent preservative free 02/01/2021 Influenza, IIV3, injectable 12/28/2006, 3 Moderna Covid-19 Vaccine 12+ 03/26/2021,09/05/19 21,08/07/2020 Pneumococcal Polysaccharide PPSV23 12/15/2006 TD (adult), 2 Lf tetanus tox oid, preservative free, adsorbed 04/14/2009 Family History Medical History Relation Name Comments Stroke Brother Cardiomyopathy Maternal Grandmother Cardiomyopathy Mother Relation Name Status Comments Brother Maternal Grandmother Mother Social History Tobacco Use Types Packs/Day Years Used Date Smoking Tobacco: Former Cigarettes Passive Smoke Exposure: Past Tobacco Cessation:Counseling Given: Not Answered Alcohol Use Standard Drinks/Week [...] Sign Reading Time Taken Comments Blood Pressure 120/90 09/03/2024 2:07 PM EDT Pulse 70 09/03/2024 2:07 PM EDT Temperature 36.3 C (97.4 F) 09/03/2024 2:07 PM EDT Respiratory Rate 18 09/03/2024 2:07 PM EDT Oxygen Saturation 98% 09/03/2024 2:07 PM EDT Inhaled Oxygen Concentration - - Weight 57.4 kg (126 lb 9.6 oz) 09/03/2024 2:07 P M EDT Height 157.5 cm (5' 2 ) 09/03/2024 2:07 PM EDT Body Mass Index 23.16 09/03/2024 2:07 PM EDT Plan of Treatment Upcoming Encounters Date Type Department Care Team (Late st Contact Info) Description 12/20/2024 9:15 AM EDT Office Visit [facility] [address] [place] [address] Fernando Nieto MD [address] [place] [address] 01/17/2025 10:15 AM EDT Office Visit [facility] [address] [place] [address] Fernando Nieto MD [address] [place] [address] 02/21/2025 3:45 PM EST Office Visit [facility] [address] [place] [address] Nasir George MD [address] [place] [address] Health Maintenance Due Date Last Done Comments CT Colonography 1960 Colonoscopy 1960 Colorectal Cancer Screening 1960 FIT DNA/Cologuard 1960 FIT 1960 FOBT 1960 Sigmoidoscopy 1960 Derm Melanoma Skin Check 02/02/1961 Pap Smear 1981 Cervical Cancer Screening 1990 HPV/Cotest 1990 Mammogram 2000 DTaP/Tdap/Td Vaccines (1 - Tdap) 04/15/2009 04/14/2009 Pneumococcal Vaccine: 50+ Years (2 of 2 - PCV) 2010 12/15/2006 Zoster Vaccines (1 of 2) 2010 COVID-19 Vaccine ( - season) 2024 03/26/2021, 09/04/2020, 08/07/2020 Influenza Vaccine (#1) 2024 , 12/28/2006, 02/05/2003 Alcohol/Substance Use Screening 04/19/2025 04/19/2024 Depression Screening 04/19/2025 04/19/2024, 04/19/19 Disability Screening 07/26/2025 07/26/2024 SDOH Screening 07/26/2025 07/26/2024 Tobacco Screening 09/03/2025 09/03/2024 Lipid Panel 04/19/2029 04/19/2024, 0308/2023, 08/18/2021, Additional history exists RSV Patients and Patients Aged 60 years or older (1 - 1-dose 75+ series) 08/04/2035 Hepatitis A Vaccines Aged Out 06/13/2003 No long er eligible based on patient's age to complete this topic Hepatitis B Vaccines Completed 04/14/2009, 01/23/2007, 12/15/2006 [...] patient's age to complete this topic Meningococcal B Vaccine Aged Out No l onger eligible based on patient's age to complete this topic Meningococcal Vaccine Aged Out No kenya rbenna eligible based on patient's age to complete [...] medical appointments Lifestyle No Mitchell Mendiola RN Procedures Procedure Name Priority Date/Time Associated Diagnosis Comments POCT AGAPITO-14 URINE DRUG SCREEN Routine 11/19/2024 9:59 AM EDT Uncomplicated opioid dependence (CMS/HCC) POCT AGAPITO-14 URINE DRUG SCREEN Routine 10/25/2024 9:52 AM EDT Opioid type dependence, continuous (CMS/HCC) POCT AGAPITO-14 URINE DRUG SCREEN Routine 09/25/2024 9:09 AM EDT Uncomplicated opioid dependence (CMS/HCC) HEPATITIS C AB W/REFL TO HCV RNA, QN, PCR Routine 04/19/2024 9:58 AM EST HIV 1/2 ANTIGEN/ANTIBODY, FOURTH GENERATION W/RFL Routine 04/19/2024 9:58 AM EST LIPID PANEL, STANDARD Routine 04/19/2024 9:58 AM EST Hyperlipidemia, unspecified hyperlipidemia type from Last 3 Months or Most Recently Relevant to Health Maintenance Results * (ABNORMAL) POCT AGAPITO-14 Urine Drug Screen (11/19/2024 9:59 AM EDT) Only the most recent of3 resultswithin the time period is included. THC Negative Negative Cocaine Screen, Urine Negative Negative Opiate Screen, Urine Negative Negative Methamphetamine Screen Urine Negative Negative Amphetamine Screen, Urine Negative Negative Benzodiazepines Screen, Urine Positive(A) Negative Barbiturate Screen, Urine Negative Negative Methadone Screen, Urine Negative Negative Buprenophine Screen, Urine Positive(A) Negative TCA, Urine Positive(A) Negative MDMA Urine Negative Negative ng/mL Oxycodone Screen, Urine Negative Negative Phencyclidine (PCP), Urine Negative Negative Fentanyl, Urine Negative Negative Urine Urine specimen obtained by clean catch procedure / Unknown 11/19/2024 9:59 AM EDT Chiara Rivero MD POINT OF CARE TEST ENTER/VIDYA T ORDERABLES Final Result * (ABNORMAL) Hepatitis C Antibody with Reflex to HCV, RNA, Quantitative, Real- Time PCR (04/19/2024 9:58 AM EST) Pathologist [facility] Hepatitis C Antibody Reactive( A) Nonreactive [facility] Comment:Presumptive evidence of antibodies to HCV. 04/19/2024 9:58 AM EST 04/19/2024 11:34 AM EST Fernando Nieto MD LAB BLOOD ORDERABLES Final Res ult [facility] [address] [place] [phone] * HIV-1/2 Antigen and Antibodies, Fourth Generation, with Reflexes (04/19/2024 9:58 AM EST) Pathologist [facility] HIV AB/AG Nonreactive Nonreactive [facility] Comment:HIV-1 p24 Ag and/or HIV-1/HIV-2 Ab not detected.A test result that is nonreactive does not exclude thepossibility of exposure to or infection with HIV-1 and/orHIV-2. Nonreactive results in this assay for individualswith prior exposure to HIV-1 and/or HIV-2 may be due toantigen and antibody levels that are below the limit ofdetection of this assay.The [employer] HIV Ag/Ab Combo assay result andsupplemental assay results should be interpreted inconjunction with the patient's clinical presentation,history and other laboratory results. If the results areinconsistent with clinical evidence, additional testing issuggested to confirm the result. 04/19/2024 9:58 AM EST 04/19/2024 11:34 AM EST us Fernando Nieto MD LAB BLOOD ORDERABLES Final Res ult [facility] [address] [place] [phone] * Lipid Panel, Standard (04/19/2024 9:58 AM EST) Triglycerides 115 <150 mg/dL [facility] Comment:Desirable Triglyceri de: less than 150 mg/dLBorderline High Triglyceride 150-199 mg/dLHigh Triglyceride: 200-499 mg/dLVery High Triglyceride: greater than or equal to 5OO mg/dL Cholesterol 146 <200 mg/dL [facility] Comment:Desirable Cholestero l: less than 200 mg/dLBorderline High Cholesterol: 200-239 mg/dLHigh Cholesterol: greater than 239 mg/dL LDL Cholesterol Calculated 61 <100 mg/dL [facility] Comment:Desirable LDL: less than 100 mg/dLNear Optimal/Above Optimal LDL: 110- 129 mg/dLBorderline High LDL: 130-159 mg/dLHigh LDL: 160-189 mg/dLVery High LDL: greater than or equal to 190 mg/dL HDL Cholesterol 62 >40 mg/dL [facility] Comment:Desirable HDL: great er than 40 mg/dL Note: This HDL assay may give artificially low results in patients with liver disease. Blood Venous blood specimen / Unknown 04/19/2024 9:58 AM EST 04/19/2024 11:34 AM EST us Chelo Dyer SENIOR PACKAGING ENGINEER LAB BLOOD ORDERABLES Final Res ult [facility] [address] [place] [address] [phone] from Last 3 Months or Most Recently Relevant to Health Maintenance Insurance C3 HSN FULL Care Teams Industrial Relations Commissioner Relationship Specialty Start Date End Date Chelo Dyer FNP [address] [place] [address] PCP - General Family Medicine 06/20/24
--- OUTSIDE RECORDS SUMMARY | 2024-12-19 17:57 | XMS_ITS | Encounter Summary ---
Author Organization [employer] Address [address] [place] [address] 7 [place] [address] Care Team Providers Care Prop Drawer Name Role Phone Goldie Michael TIRE SERVICE TECHNICIAN Primary Care Provider + Flavio Jackson AQUATIC DIRECTOR Unavailable Unavailable Marina Abraham TIRE SERVICE TECHNICIAN Primary Care Provider [phone] Chelo Dyer AQUATIC DIRECTOR Primary Care Provider [phone] Reason for Visit * Reason Comments Med Refill Encounter Details Date Type Department Care Team (Late st Contact Info) Description 02/16/2023 Refill [facility] [address] [place] [address] [facility] [address] [place] [address] Hyperlipidemia, unspecified hyperlipidemia type Social History Tobacco [...] Description 12/20/2024 9:15 AM EDT Office Visit [facility] [place] [address] [place] [address] 01/17/2025 10:15 AM EDT Office Visit [facility] [place] [address] Fernando Nieto MD [facility] [place] [place] [address] 02/21/2025 3:45 PM EST Office Visit [facility] [place] [address] [place] [address] documented as of this encounter Visit Diagnoses Diagnosis Hyperlipidemia, unspecified hyperlipidemia type Uncomplicated opioid dependence ([facility])- Primary Tobacco use disorder documented in this encounter Additional Health Concerns Assessment Noted Time PHQ-9 Depression Total Score: 2 02/03/20 23 1:49 PM EDT documented as of this encounter Care Teams Prop Drawer Relationship Specialty Start Date End Date Goldie Michael NP [facility] [place] [address] PCP - General Family Medicine 02/15/23 05/10/23 Marina Abraham NP [facility] [place] [address] PCP - General Family Medicine 05/11/23 06/19/24 Chelo Dyer FNP [facility] [place] [address] PCP - General Family Medicine 06/20/24 Flavio Jackson FNP [address] [place] [phone] Nurse Practitioner Family Medicine 03/14/23 06/19/24 documented as of this encounter
--- OUTSIDE RECORDS SUMMARY | 2024-12-19 17:57 | XMS_ITS | Patient Health Record ---
Author Organization [facility] Address [address] [place] [id number] Care Team Providers Care Planer Stone Name Role Phone Lamine Hanna [phone] Reason For Referral No Information Plan Of Treatment No Information
--- OUTSIDE RECORDS SUMMARY | 2024-12-19 17:57 | XMS_ITS | Encounter Summary ---
Author Organization [employer] Address [address] [place] [address] 7[address] [place] [address] Care Team Providers Care Human Resources Benefits Specialist Name Role Phone CiarachuckFlavio PRODUCT MERCHANDISER Unavailable Unavailable Marina Abraham NP Primary Care Provider Chelo Dyer PRODUCT MERCHANDISER Primary Care Provider Reason for Visit * Reason Comments Med Refill Encounter Details Date Type Department Care Team (Late st Contact Info) Description 05/11/2023 Refill [facility] [address] [place], [place] [phone] NameEmiliano MD [address] [place], [place] [phone] Hyperlipidemia, unspecified hyperlipidemia type Social History Tobacco [...] Description 12/20/2024 9:15 AM EDT Office Visit [address] [address] Fernando Nieto MD [address] [place] [address] 01/17/2025 10:15 AM EDT Office Visit [address] [address] Fernando Nieto MD [place], [place] [phone] 02/21/2025 3:45 PM EST Office Visit [address] [address] Nasir George MD [address] [place] [address] documented as of this encounter Visit Diagnoses Diagnosis Hyperlipidemia, unspecified hyperlipidemia type Uncomplicated opioid dependence (CMS/HCC)- Primary Tobacco use disorder documented in this encounter Additional Health Concerns Assessment Noted Time PHQ-9 Depression Total Score: 4 04/06/20 10:05 AM EST documented as of this encounter Care Teams Human Resources Benefits Specialist Relationship Specialty Start Date End Date Marina Abraham NP [address] [place] [address] PCP - General Family Medicine 05/11/23 06/19/24 Chelo Dyer FNP [address] [place] [address] PCP - General Family Medicine 06/20/24 Flavio Jackson FNP Nurse Practitioner Family Medicine 03/14/23 06/19/24 documented as of this encounter
== END 2024-12-19 15:02 | disposition home or self-care (01) ==
LOC: HO.HCS 14:08
PROVIDERS: PCP Internal Medicine; Visit Provider Internal Medicine
DX: R00.2 Palpitations (principal); R07.89 Other chest pain
CPT/HCPCS: 99214

== ENCOUNTER → 2024-12-19 14:08 | Outpatient (BNVA) | payer MEDICAID, SELFPAY | PROVIDERS: PCP Internal Medicine; Visit Provider Internal Medicine | DX: Z71.2 Person consulting for explanation of examination or test findings (principal); R00.2 Palpitations; R07.89 Other chest pain | CPT/HCPCS: 99212 ==

== ENCOUNTER 2025-01-10 10:44 | Outpatient (REF) | payer MEDICAID, SELFPAY ==
--- OUTSIDE RECORDS SUMMARY | 2025-01-09 13:00 | XMS_ITS | Encounter Summary ---
Author Organization [employer] Address [address] [place] [address] 7[address] [place] [address] Care Team Providers Care High Tension Tester Name Role Phone Chelo Dyer HEAD CASHIER Primary Care Provider [phone] Reason for Visit * Reason Comments Abdominal Pain Constipation Encounter Details Date Type Department Care Team ([facility] st Contact Info) Description 01/09/2025 1:00 PM EDT Office Visit [facility] [address] [place], [place] [phone] Alie Gaxiola DO [address] [place] [address] Chronic diarrhea (Primary Dx); Exposure to parasitic disease Social History Tobacco Use Types Packs/Day Years [...] Sign Reading Time Taken Comments Blood Pressure 119/72 01/09/2025 12:56 PM EDT Pulse 74 01/09/2025 12:56 PM EDT Temperature 36.7 C (98.1 F) 01/09/2025 12:56 PM EDT Respiratory Rate 17 01/09/2025 12:5 6 PM EDT Oxygen Saturation 97% 01/09/2025 12: 56 PM EDT Inhaled Oxygen Concentration - - Weight 58.4 kg (128 lb 12.8 oz) 025 12:56 PM EDT Height - - Body Mass Index 23.56 09/03/2024 2:07 PM EDT documented in this encounter Progress Notes * Alie Gaxiola, - 01/09/2025 1:00 PM EDT SUBJECTIVE Shauna Zaragoza is a 64 y.o. female who presents for Sick Visit. She presents to [place] today c/o stomach pain. She says that she has been having diarrhea for the last year. She describes intermittent bouts of diarrhea x 1 year. She says that current flare started 5 days ago. She says that the diarrhea is watery and nonbloody. She says that between the diarrhea her stools are soft and loose, never formed. She gets some abdominal cramping and recently felt something move in her epigastric area. No nausea orvomiting. She says she thinks she has a parasite. She says her daughter had worms about 1 year ago and was treated and her symptoms went away. 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 She says she saw, hundreds of these little, tiny things-- some of which were circular, some were linear, etc. She says that she took photos but her deleted them. She denies any recent travel or abx use. She says that she did a stool test before but was unable to be processed because it was too old. History provided by: Patient final dressing cutter used: No Diarrhea Quality: Watery Severity: Moderate Progression: Unchanged Associated symptoms: no abdominal pain, no arthralgias, no chills, no recent cough, no fever, no headaches, no myalgias, no URI and no vomiting Risk factors: no recent antibiotic use, no sick contacts and no travel to endemic areas Review of Systems Constitutional: Negative for activity change, appetite change, chills, fever and unexpected weight change. Respiratory: Positive for stridor. Negative for cough and shortness of breath. Cardiovascular: Negative for chest pain, palpitations and leg swelling. Gastrointestinal: Positive for diarrhea. Negative for abdominal pain, blood in stool, constipation,nausea and vomiting. Musculoskeletal: Negative for arthralgias and myalgias. Neurological: Negative for weakness and headaches. 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 Hepatitis A immune JOSUE (generalized anxiety disorder) History of opioid abuse (HCC) Tobacco dependence due to cigarettes, in remission Chronic sinusitis Hyperlipidemia Encounter for wellness examination in adult Subacute maxillary sinusitis Muscle spasm Palpitation Palpitations Chronic midline thoracic back pain Onychomycosis Generalized abdominal pain Primary hypertension Headache around the eyes Family history of CVA No Known Allergies OBJECTIVE Visit Vitals BP 119/72 (BP Location: Left arm, Patient Position: Sitting, BP Cuff Size: Adult) Pulse 74 Temp 98.1 ??F (36.7 ??C) (Oral) Resp 17 Wt 128 lb 12.8 oz (58.4 kg) SpO2 97% BMI 23.56 kg/m?? Smoking Status Former BSA 1.6 m?? Physical Exam Constitutional: General: She is not in acute distress. Appearance: Normal appearance. Cardiovascular: Rate and Rhythm: Normal rate and regular rhythm. Heart sounds: Normal heart sounds. No murmur heard. Pulmonary: Effort: Pulmonary effort is normal. Breath sounds: Normal breath sounds. No wheezing or rhonchi. Abdominal: General: Bowel sounds are normal. Palpations: Abdomen is soft. There is no mass. Tenderness: There is no abdominal tenderness. Neurological: General: No focal deficit present. Mental Status: She is alert and oriented to person, place, and time. Cranial Nerves: No cranial nerve deficit. Motor: No weakness. Gait: Gait normal. Psychiatric: Mood and Affect: Mood normal. Assessment/Plan Diagnoses and all orders for this visit: Chronic diarrhea Exposure to parasitic disease -treat empirically with tinidazole x 1 dose given sick contact -encouraged supportive care measures -advised stay well hydrated -send stool cx and fecal leukocytes -send giardia and O&P testing -advised rtc if sx do not resolve, she agrees with plans --Follow-up with PCP as scheduled or sooner prn-- Current Outpatient Medications: atorvastatin (Lipitor) 20 MG tablet, Take 1 tablet (20 mg) by mouth Once per day., Disp: 30 tablet,Rfl: 11 Blood Pressure kit, Use as directed, Disp: , Rfl: Buprenorphine HCl-Naloxone HCl (Suboxone) 8-2 MG SL film, Place 1 Film under the tongue every 12 (twelve) hours for 28 days. Allow to dissolve slowly in the mouth without chewing or swallowing. Do not start before October 07, 2024., Disp: 56 Film, Rfl: 0 Buprenorphine HCl-Naloxone HCl (Suboxone) 8-2 MG SL film, Place 1 Film under the tongue 2 times daily for 28 days. Do not start before December 20, 2024., Disp: 56 Film, Rfl: 0 cyclobenzaprine (Flexeril) 10 MG tablet, TAKE 1 TABLET BY MOUTH IN THE MORNING AND AT BEDTIME NEEDED FOR MUSCLE SPASMS FOR UP TO 10 DAYS, Disp: 20 tablet, Rfl: 0 fluticasone (Flonase) 50 MCG/ACT nasal spray, SPRAY 2 SPRAYS INTO EACH NOSTRIL EVERY DAY. SHAKE GENTLY. BEFORE FIRST USE, PRIME PUMP. AFTER USE, CLEAN TIP AND REPLACE CAP., Disp: 48 mL, Rfl: 0 hydrocortisone (Proctosol HC) 2.5 % rectal cream, Insert into the rectum if needed in the morning and at bedtime (rectal itching)., Disp: 28 g, Rfl: 0 ibuprofen 800 MG tablet, Take 1 tablet by mouth every 8 (eight) hours., Disp: , Rfl: lidocaine (Lidoderm) 5 % patch, Place 1 patch on the skin 1 (one) time each day. May wear up to 12 hours., Disp: , Rfl: metoprolol tartrate (Lopressor) 25 MG tablet, Take 1 tablet (25 mg) by mouth 2 times daily., Disp: 60 tablet, Rfl: 2 Multiple Vitamin (Multi-Vitamin) tablet, Take 1 tablet by mouth Once per day., Disp: , Rfl: olmesartan (BENIcar) 20 MG tablet, TAKE 1 TABLET BY MOUTH EVERY DAY, Disp: 90 tablet, Rfl: 1 olmesartan (Benicar) 20 MG tablet, Take 1 tablet (20 mg) by mouth Once per day., Disp: 90 tablet, Rfl: 1 tinidazole (Tindamax) 500 MG tablet, Take 4 tablets (2,000 mg) by mouth 1 (one) time for 1 dose. Take with food, Disp: 4 tablet, Rfl: 0 witch teagan-glycerin (Tucks) pad, Apply topically if needed for irritation., Disp: 96 each, Rfl: 3 Scribe Attestation: Colton Garland, am serving as a scribe to document services personally performed by Alie De La O, based on the patient's response to questions by provider and provider's statements to me. 01/09/25 4:17 PM Physicians Attestation: Alie Garland DO, have reviewed the information by the scribe, Colton Palacios, for accuracy and agree with its content. documented in this encounter Plan of Treatment Upcoming Encounters Date Type Department Care Team (Late st Contact Info) Description 01/17/2025 10:15 AM EDT Clinical Support [address] [address] Kait Fatima RN 02/21/2025 3:45 PM EST Office Visit [address] [address] Nasir George MD [address] [place] [address] Scheduled Orders Name Type Priority Associated Diagnoses Orde r Schedule Stool - Gastrointestinal panel Microbiology Routine Chronic diarrhea Expected: 01/09/2025 (Approximate), Expires: 01/09/2026 Leukocytes Stool Qualitative Lab Routine Chronic diarrhea Expected: 01/09/2025, Expires: 01/09/2026 Giardia Antigen, EIA, Stool Lab Routine Chronic diarrhea Expected: 01/09/2025, Expires: 01/09/2026 Ova and Parasites Microbiology Routine Chronic diarrhea Expected: 01/09/2025 (Approximate), Expires: 01/09/2026 documented as of this encounter Goals Goal Patient Goal Type Associated Problems Recent Progress Patient-Stated? Author Increase coping skills to promote long-term recovery and improve ability to perform daily activities General On track( 025 10:54 AM EDT) No Kait Fatima, CHRISTIAN Keep your medical appointments Lifestyle No Mitchell Mendiola, CHRISTIAN documented as of this encounter Visit Diagnoses Diagnosis Chronic diarrhea- Primary Diarrhea Exposure to parasitic disease documented in this encounter Additional Health Concerns Assessment Noted Time PHQ-9 Depression Total Score: 0 04/19/19 11:45 AM EST documented as of this encounter Care Teams High Tension Tester Relationship Specialty Start Date End Date Chelo Dyer FNP [address] [place] [address] PCP - General Family Medicine 06/20/24 documented as of this encounter
--- OUTSIDE RECORDS SUMMARY | 2025-01-10 11:45 | XMS_ITS | Encounter Summary ---
Author Organization [employer] Address [address] [place] [address] 7t [place] [address] Care Team Providers Care Bottle Washing Machine Operator Name Role Phone Goldie Michael COPY CLERK Primary Care Provider + Flavio Jackson SUPERVISOR PASTE PLANT Unavailable Unavailable Marina Abraham COPY CLERK Primary Care Provider [phone] Chelo Dyer SUPERVISOR PASTE PLANT Primary Care Provider [phone] Reason for Visit * Reason Comments Med Refill Encounter Details Date Type Department Care Team (Late st Contact Info) Description 02/16/2023 Refill [facility] [address] [place] [address] [facility] [address] [place] [address] Hyperlipidemia, unspecified hyperlipidemia type Social History Tobacco [...] Description 01/17/2025 10:15 AM EDT Clinical Support [facility] [place] [address] Kait Fatima, CHRISTIAN 02/21/2025 3:45 PM EST Office Visit [facility] [address] [facility] [place] [address] [place] [address] documented as of this encounter Visit Diagnoses Diagnosis Hyperlipidemia, unspecified hyperlipidemia type documented in this encounter Additional Health Concerns Assessment Noted Time PHQ-9 Depression Total Score: 2 02/03/20 1:49 PM EDT documented as of this encounter Care Teams Bottle Washing Machine Operator Relationship Specialty Start Date End Date Goldie Michael NP [address] [facility] [place] [address] PCP - General Family Medicine 02/15/23 05/10/23 [place] [address] PCP - General Family Medicine 05/11/23 06/19/24 [place] [address] PCP - General Family Medicine 06/20/24 Flavio Jackson FNP [address] [place] [address] Nurse Practitioner Family Medicine 03/14/23 06/19/24 documented as of this encounter
--- OUTSIDE RECORDS SUMMARY | 2025-01-10 11:46 | XMS_ITS | Encounter Summary ---
Author Organization [employer] Address [address] [place] [address] 7t [place] [address] Care Team Providers Care Chef Under Name Role Phone Chelo Dyer FILENET P8 DEVELOPER Primary Care Provider [phone] Encounter Details Date Type Department Care Team (Latest Contact Info) Description 01/09/2025 Travel Social History Tobacco Use Types Packs/Day [...] Description 01/17/2025 10:15 AM EDT Clinical Support [facility] [address] [place] [address] Kait Fatima, CHRISTIAN 02/21/2025 3:45 PM EST Office Visit [facility] [address] [place] [address] Nasir George MD [address] [place] [address] documented as of this encounter Goals Goal [...] documented as of this encounter Care Teams Chef Under Relationship Specialty Start Date End Date Chelo Dyer FNP [address] [place] [address] PCP - General Family Medicine 06/20/24 documented as of this encounter
--- OUTSIDE RECORDS SUMMARY | 2025-01-10 11:46 | XMS_ITS | Encounter Summary ---
Author Organization [employer] Address [address] [place] [address] [address] [place] [address] Care Team Providers Care Fruit And Vegetable Parer Name Role Phone Renata Loredo ICE CREAM SCOOPER Primary Care Provider [phone] Goldie Michael CLINICAL ABSTRACTOR Primary Care Provider +- Flavio Jackson ICE CREAM SCOOPER Unavailable Unavailable Marina Abraham CLINICAL ABSTRACTOR Primary Care Provider [phone] Chelo Dyer ICE CREAM SCOOPER Primary Care Provider [phone] Reason for Visit * Reason Comments Med Refill Encounter Details Date Type Department Care Team (Late st Contact Info) Description 02/13/2023 Refill [facility] [address] [place], [place] [phone] [facility] [address] [place] [address] Hyperlipidemia, unspecified hyperlipidemia type Social History Tobacco [...] Description 01/17/2025 10:15 AM EDT Clinical Support [facility] [address] [place] [address] Kait Fatima RN 02/21/2025 3:45 PM EST Office Visit [facility] [address] [place] [address] Nasir George MD [address] [place] [address] documented as of this encounter Visit Diagnoses Diagnosis Hyperlipidemia, unspecified hyperlipidemia type documented in this encounter Additional Health Concerns Assessment Noted Time PHQ-9 Depression Total Score: 2 02/03/20 23 1:49 PM EDT documented as of this encounter Care Teams Fruit And Vegetable Parer Relationship Specialty Start Date End Date Renata Loredo FNP [address] [place] [address] PCP - General Family Medicine 06/07/22 02/14/23 Goldie Michael NP [address] [place] [address] PCP - General Family Medicine 02/15/23 05/10/23 Marina Abraham NP [address] [place] [address] PCP - General Family Medicine 05/11/23 06/19/24 Chelo Dyer FNP [address] [place] [address] PCP - General Family Medicine 06/20/24 Flavio Jackson FNP [address] [place] [address] Nurse Practitioner Family Medicine 03/14/23 06/19/24 documented as of this encounter
--- OUTSIDE RECORDS SUMMARY | 2025-01-10 11:46 | XMS_ITS | Encounter Summary ---
Author Organization [employer] Address [address] [place] [address] 7t [place] [address] Care Team Providers Care Dealer Accounts Investigator Name Role Phone ManuelFlavio SIDE PANEL PADDER Unavailable Unavailable Marina Abraham CANNING MACHINE OPERATOR Primary Care Provider [phone] Chelo Dyer SIDE PANEL PADDER Primary Care Provider [phone] Encounter Details Date Type Department Care Team (Late st Contact Info) Description 04/01/2024 Orders Only [facility] [address] [place], [place] [phone] [place], CHRISTIAN Uncomplicated opioid dependence (CMS/HCC) [...] Description 01/17/2025 10:15 AM EDT Clinical Support [facility] [address] [place] [phone] Kait Fatima RN 02/21/2025 3:45 PM EST Office Visit [facility] [address] [place] [address] Nasir George MD [address] [place] [address] Scheduled Orders Name Type Priority Associated Diagnoses [...] Visit Diagnoses Diagnosis Uncomplicated opioid dependence (CMS/HCC) (HCC) documented in this encounter Additional Health Concerns Assessment Noted Time PHQ-9 Depression Total Score: 4 04/06/20 10:05 AM EST documented as of this encounter Care Teams Dealer Accounts Investigator Relationship Specialty Start Date End Date Marina Abraham NP [address] [place] [address] PCP - General Family Medicine 05/11/23 06/19/24 Chelo Dyer FNP [address] [place] [address] PCP - General Family Medicine 06/20/24 Flavio Jackson FNP Nurse Practitioner Family Medicine 03/14/23 06/19/24 documented as of this encounter
--- OUTSIDE RECORDS SUMMARY | 2025-01-10 11:46 | XMS_ITS | Clinical Summary ---
Author Organization [employer] Address [address] [place] [address] 7[address] [place] [address] Care Team Providers Care Pedicab Driver Name Role Phone Chelo Dyer EMBOSSED OR IMPRESSED LETTERING PAINTER Primary Care Provider [phone] Allergies No known active allergies Medications * [...] SL filmIndication s:Uncomplicate d opioid dependence (CMS/HCC) (HCC) Place 1 Film under the tongue every [...] SL filmIndication s:Uncomplicate d opioid dependence (CMS/HCC) ([facility]) Place 1 Film under the tongue 2 times daily for 28 days. Do not start before December 20, 2024. 56 Film 12/21/19 25 025 Active witch teagan-glycerin (Tucks) pad Apply topically if needed for irritation. 96 each 3 01/10/20 25 Active hydrocortisone (Proctosol HC) 2.5 % rectal cream Insert into the rectum if needed in the morning and at bedtime (rectal itching). 28 g 01/10/20 25 Active Buprenorphine HCl-Naloxone HCl (Suboxone) 8-2 MG SL filmIndication s:Uncomplicate d opioid dependence (CMS/HCC) ([facility]) Place 1 Film under the tongue 2 times daily for 28 days. 56 Film 11/17/19 25 025 Discontinued(Re order (will not trigger notification to Pharmacy)) tinidazole (Tindamax) 500 MG tablet Take 4 tablets (2,000 mg) by mouth 1 (one) time for 1 dose. Take with food 4 tablet 01/10/20 25 025 Active Problems Problem Noted Date Diagnosed Date [...] first sign of panic attack. F/U with [facility] clinician Russell and plans to [...] first sign of panic attack. F/U with [facility] clinician Russell. Today 02/02/2023 provider [...] first sign of panic attack. F/U with [facility] clinician Russell. F/U with me [...] first sign of panic attack. F/U with [facility] clinician Russell. F/U with me [...] Encounters Date Type Department Care Team Description 01/09/2025 1:00 PM EDT Office Visit [facility] [address] [place] [address] Alie Gaxiola DO Chronic diarrhea (Primary Dx); Exposure to parasitic disease 01/09/2025 Travel 01/09/2025 Refill [facility] [address] [place] [address] Marina Abraham NP 12/31/2024 Travel 12/20/2024 9:15 AM EDT Office Visit [facility] [address] [place] [address] Fernando Nieto MD Uncomplicated opioid dependence (CMS/HCC) (Primary Dx); Tobacco use disorder 12/20/2024 Travel 12/13/2024 Refill [facility] [address] [place] [address] Kait Fatima RN Uncomplicated opioid dependence (CMS/HCC) 12/05/2024 Orders Only [facility] [address] [place] [phone] Marina Abraham NP Primary hypertension (Primary Dx) 12/04/[address] [address] Chelo Dyer FNP Med Refill (Pt requesting med refill for Olmesartan ) 12/04/2024 Refill [facility] [address] [place] [address] Marina Abraham NP 11/25/[address] [address] Chelo Dyer FNP R/S appt 11/19/2024 10:15 AM EDT Clinical Support [facility] [address] [place] [address] Lexus Hill RN Uncomplicated opioid dependence (CMS/HCC) (Primary Dx) 11/19/2024 Travel 11/15/2024 Refill [facility] [address] [place] [address] Lexus Hill RN Uncomplicated opioid dependence (CMS/HCC) 10/25/2024 10:00 AM EDT Clinical Support [facility] [address] [place] [address] Kait Fatima RN Opioid type dependence, continuous (CMS/HCC) (Primary Dx) 10/25/2024 Refill [facility] [address] [place] [address] Chelo Dyer FNP Muscle spasm 10/25/2024 Telephone [facility] [address] [place] [address] Fernando Nieto MD 10/25/2024 Travel 10/18/2024 Telephone [facility] [address] [place], [place] [phone] Cheol Dyer FNP Med Refill from Last 3 Months Immunizations Immunization Administration [...] 12.8 oz) 025 12:56 PM EDT Height 157.5 cm (5' 2 ) 09/03/2024 2:07 PM EDT Body Mass Index 23.56 09/03/2024 2:07 PM EDT Plan of Treatment Upcoming Encounters Date Type Department Care Team (Late st Contact Info) Description 01/17/2025 10:15 AM EDT Clinical Support [address] [address] Kait aFtima RN 02/21/2025 3:45 PM EST Office Visit [facility] [place] [address] Nasir George MD [address] [facility] [place] [address] Health Maintenance Due Date Last Done Comments [...] 2) 2010 COVID-19 Vaccine (4 - season) 2024 03/26/2021, 09/04/2020, 08/07/2020 Influenza Vaccine (#1) 2024 , 12/28/2006, 02/05/2003 Alcohol/Substance Use Screening 04/19/2025 04/19/2024 Depression Screening 04/19/2025 04/19/2024, 04/19/19 Disability Screening 07/26/2025 07/26/2024 SDOH Screening 07/26/2025 07/26/2024 Tobacco Screening 01/09/2026 01/09/2025 Lipid Panel 04/19/2029 04/19/2024, 0308/2023, 08/18/2021, Additional [...] your medical appointments Lifestyle No Mitchell Mendiola, starch dumper Procedure Name Priority Date/Time Associated Diagnosis Comments POCT AGAPITO-14 URINE DRUG SCREEN Routine 12/20/2024 9:53 AM EDT Uncomplicated opioid dependence (CMS/HCC) POCT AGAPITO-14 URINE DRUG SCREEN Routine 11/19/2024 9:59 AM EDT Uncomplicated opioid dependence (CMS/HCC) POCT AGAPITO-14 URINE DRUG SCREEN Routine 10/25/2024 9:52 AM EDT Opioid type dependence, continuous (CMS/HCC) HEPATITIS C AB W/REFL TO HCV RNA, QN, PCR Routine 04/19/2024 9:58 AM EST HIV 1/2 ANTIGEN/ANTIBODY, FOURTH GENERATION W/RFL Routine 04/19/2024 9:58 AM EST LIPID PANEL, STANDARD Routine 04/19/2024 9:58 AM EST Hyperlipidemia, unspecified hyperlipidemia type from Last 3 Months or Most Recently Relevant to Health Maintenance Results * (ABNORMAL) POCT AGAPITO-14 Urine Drug Screen (12/20/2024 9:53 AM EDT) Only the most recent of3 resultswithin the time period is included. Pathologist [facility] THC Negative Negative Cocaine Screen, Urine Negative [...] obtained by clean catch procedure / Unknown 12/20/2024 9:53 AM EDT us Fernando Nieto MD POINT OF CARE TEST ENTER/EDIT ORDERABLES Final Result * (ABNORMAL) Hepatitis C Antibody with Reflex to HCV, RNA, Quantitative, Real- Time PCR (04/19/2024 9:58 AM EST) [facility] Hepatitis C Antibody Reactive( A) Nonreactive [facility] Comment:Presumptive evidence of antibodies to HCV. 04/19/2024 9:58 AM EST 04/19/2024 11:34 AM EST us Fernando Nieto MD LAB BLOOD ORDERABLES Final Res ult [facility] [address] [place] [phone] * HIV-1/2 Antigen and Antibodies, Fourth Generation, with Reflexes (04/19/2024 9:58 AM EST) Pathologist [facility] HIV AB/AG Nonreactive Nonreactive [facility] Comment:HIV-1 p24 Ag and/or HIV-1/HIV-2 Ab not detected.A test result that is nonreactive does not exclude thepossibility of exposure to or infection with HIV-1 and/orHIV-2. Nonreactive results in this assay for individualswith prior exposure to HIV-1 and/or HIV-2 may be due toantigen and antibody levels that are below the limit ofdetection of this assay.The Audinate Alinity HIV Ag/Ab Combo assay result andsupplemental assay results should be interpreted inconjunction with the patient's clinical presentation,history and other laboratory results. If the results areinconsistent with clinical evidence, additional testing issuggested to confirm the result. 04/19/2024 9:58 AM EST 04/19/2024 11:34 AM EST us Fernando Nieto MD LAB BLOOD ORDERABLES Final Res ult [facility] [address] [place] [phone] * Lipid Panel, Standard (04/19/2024 9:58 AM EST) Triglycerides 115 <150 mg/dL [facility] Comment:Desirable Triglyceri de: less than 150 mg/dLBorderline High Triglyceride 150-199 mg/dLHigh Triglyceride: 200-499 mg/dLVery High Triglyceride: greater than or equal to 5OO mg/dL Cholesterol 146 <200 mg/dL [facility] Comment:Desirable Cholestero l: less than 200 mg/dLBorderline High Cholesterol: 200-239 mg/dLHigh Cholesterol: greater than 239 mg/dL LDL Cholesterol Calculated 61 <100 mg/dL [facility] Comment:Desirable LDL: less than 100 mg/dLNear Optimal/Above Optimal LDL: 110- 129 mg/dLBorderline High LDL: 130-159 mg/dLHigh LDL: 160-189 mg/dLVery High LDL: greater than or equal to 190 mg/dL HDL Cholesterol 62 >40 mg/dL [facility] Comment:Desirable HDL: great er than 40 mg/dL Note: This HDL assay may give artificially low results in patients with liver disease. Blood Venous blood specimen / Unknown 04/19/2024 9:58 AM EST 04/19/2024 11:34 AM EST us Chelo Dyer EMBOSSED OR IMPRESSED LETTERING PAINTER LAB BLOOD ORDERABLES Final Res ult [facility] [address] [place] [phone] from Last 3 Months or Most Recently Relevant to Health Maintenance Insurance C3 HS FULL Care Teams Pedicab Driver Relationship Specialty Start Date End Date Chelo Dyer FNP [address] [place] [phone] PCP - General Family Medicine 06/20/24
--- OUTSIDE RECORDS SUMMARY | 2025-01-10 11:46 | XMS_ITS | Encounter Summary ---
Author Organization [employer] Address [address] [place] [address] 7[address] [place] [address] Care Team Providers Care Pasteurizer Name Role Phone CiarachuckFlavio CORRECTIONAL FACILITY PSYCHIATRIST Unavailable Unavailable Marina Abraham NP Primary Care Provider [phone] Chelo Dyer CORRECTIONAL FACILITY PSYCHIATRIST Primary Care Provider [phone] Reason for Visit * Reason Comments Med Refill Encounter Details Date Type Department Care Team (Late st Contact Info) Description 05/11/2023 Refill [facility] [address] [place], [place] [phone] NameEmiliano MD [address] [place], [place] [phone] Hyperlipidemia, unspecified hyperlipidemia type Social History Tobacco [...] Description 01/17/2025 10:15 AM EDT Clinical Support [address] [address] Kait Fatima RN 02/21/2025 3:45 PM EST Office Visit [address] [address] Nasir George MD [address] [place] [address] documented as of this encounter Visit Diagnoses Diagnosis Hyperlipidemia, unspecified hyperlipidemia type documented in this encounter Additional Health Concerns Assessment Noted Time PHQ-9 Depression Total Score: 4 04/06/20 10:05 AM EST documented as of this encounter Care Teams Pasteurizer Relationship Specialty Start Date End Date Marina Abraham NP [address] [place] [phone] PCP - General Family Medicine 05/11/23 06/19/24 Chelo Dyer FNP [address] [place] [address] PCP - General Family Medicine 06/20/24 Flavio Jackson FNP Nurse Practitioner Family Medicine 03/14/23 06/19/24 documented as of this encounter
--- OUTSIDE RECORDS SUMMARY | 2025-01-10 11:46 | XMS_ITS | Encounter Summary ---
Author Organization [employer] Address [address] [place] [address] 7[address] [place] [address] Care Team Providers Care Survey Research Associate Name Role Phone ManuelFlavio INFORMATION SYSTEMS PROJECT MANAGER Unavailable Unavailable Marina Abraham SUPPRESSION CREW LEADER Primary Care Provider [phone] Chelo Dyer INFORMATION SYSTEMS PROJECT MANAGER Primary Care Provider [phone] Encounter Details Date Type Department Care Team ([facility] st Contact Info) Description 04/08/2024 Orders Only [facility] [address] [place], [place] [phone] Provider, MD Jam Social History Tobacco Use [...] Description 01/17/2025 10:15 AM EDT Clinical Support [facility] MEDICINE [address] [place] [phone] Kait Fatima RN 02/21/2025 3:45 PM EST Office Visit [facility] [address] [place] [phone] Nasir George MD [address] [place] [phone] documented as of this encounter Procedures Procedure [...] documented as of this encounter Care Teams Survey Research Associate Relationship Specialty Start Date End Date Marina Abraham NP [address] [place] [address] PCP - General Family Medicine 05/11/23 06/19/24 Chelo Dyer FNP [address] [place] [address] PCP - General Family Medicine 06/20/24 Flavio Jackson FNP Nurse Practitioner Family Medicine 03/14/23 06/19/24 documented as of this encounter
--- OUTSIDE RECORDS SUMMARY | 2025-01-10 11:46 | XMS_ITS | Patient Health Record ---
Author Organization [facility] Address [address] [place] [phone] Care Team Providers Care Creche Attendant Name Role Phone Lamine Hanna [phone] Reason For Referral No Information Plan Of Treatment No Information
--- OUTSIDE RECORDS SUMMARY | 2025-01-10 11:46 | XMS_ITS | Encounter Summary ---
Author Organization [employer] Address [address] [place] [address] 7t [place] [address] Care Team Providers Care Carbon Furnace Operator Name Role Phone Chelo Dyer HOSPICE SUPERINTENDENT Primary Care Provider [phone] Reason for Visit * Reason Comments Med Refill Encounter Details Date Type Department Care Team (Late st Contact Info) Description 01/09/2025 Refill [facility] [address] [place], [place] [phone] Marina Abraham, SUDHEER [address] [place], [place] [phone] Social History Tobacco Use Types Packs/Day Years [...] Description 01/17/2025 10:15 AM EDT Clinical Support [facility] [address] [place] [address] Kait Fatima, CHRISTIAN 02/21/2025 3:45 PM EST Office Visit [facility] MED[facility] [address] [place] [address] Nasir George MD [address] [place] [address] documented as of this encounter Goals Goal [...] as of this encounter Care Teams Carbon Furnace Operator Relationship Specialty Start Date End Date Chelo Dyer FNP [address] [place] [address] PCP - General Family Medicine 06/20/24 documented as of this encounter
[2025-01-10 12:53] LABS: Leukocytes Stool Qualitative NEGATIVE (NEGATIVE)
[2025-01-10 13:09] LABS: E. coli EAEC Not Detected (Not Detect.); E. coli EPEC Not Detected (Not Detect.); E. coli ETEC Not Detected (Not Detect.); E. coli STEC Not Detected (Not Detect.); Shigella sp./EIEC Not Detected (Not Detect.)
== END 2025-01-10 10:45 | disposition home or self-care (01) ==
LOC: HO.HHCL 10:44
PROVIDERS: PCP Nurse Practitioner Family; Visit Provider Family Medicine
DX: K52.9 Noninfective gastroenteritis and colitis, unspecified (principal)
CPT/HCPCS: 87177; 87209; 87329; 87507; 89055